=== PATIENT | female | born 1945 | race Caucasian/White ===

== ENCOUNTER 2022-01-21 01:04 | Inpatient (IN) | payer MEDICARE, OTHER, SELFPAY ==
[2022-01-21] VITALS (23 sets, daily range): BP systolic 122–194; BP diastolic 63–99; PULSE 60–103; RESP 12–18; TEMP 36.2–37.3; O2SAT 90–100; BMI 18.3; BMI 16.9
--- NOTE | 2022-01-21 01:06 | XRR_ITS ---
PROCEDURE INFORMATION: Exam: XR Right Hip Exam date and time: 01/21/2022 1:09 AM Age: 76 years old Clinical indication: Injury or trauma; Fall; Blunt trauma (contusions or hematomas); Right; Hip; Additional info: Hip pain TECHNIQUE: Imaging protocol: XR Right hip. Views: 1 view hip with pelvis when performed. COMPARISON: No relevant prior studies available. FINDINGS: Bones/joints: Right subcapital femoral neck fracture. Soft tissues: Unremarkable. XR/XR hip RT 2-3V wo/w pel* [id number] IMPRESSION: Right subcapital femoral neck fracture.
--- NOTE | 2022-01-21 01:08 | XRR_ITS ---
PROCEDURE INFORMATION: Exam: XR Chest Exam date and time: 01/21/2022 1:15 AM Age: 76 years old Clinical indication: Injury or trauma; Fall; Blunt trauma (contusions or hematomas) TECHNIQUE: Imaging protocol: XR of the chest. Views: 1 view. COMPARISON: No relevant prior studies available. FINDINGS: Lungs: Unremarkable. No consolidation. Pleural spaces: Unremarkable. No pleural effusion. No pneumothorax. Heart/Mediastinum: Small hiatal hernia. Bones/joints: Unremarkable. XR/XR chest 1V portable [id number] IMPRESSION: 1. No evidence of acute injury. 2. Small hiatal hernia.
--- NOTE | 2022-01-21 01:09 | W.ED.FALL ---
HPI - Fall General: Chief Complaint: Extremity Injury, Lower Stated Complaint: RIGHT HIP PAIN Time Seen by Provider: 01/21/22 01:05 Source: patient and EMS Mode of arrival: EMS Limitations: no limitations History of Present Illness: 76-year-old female who had gotten up tonight trying to the bathroom and slipped and fell. She fell on her right side and has right hip pain she has shortening or rotation of that right leg. She denies any other injuries she denies hitting her head denies any head or neck pain. Rates her pain a 7 out of 10 currently. She not been able to ambulate since the fall. Associated symptoms-after fall: Denies abdominal pain, chest pain, headache(s) or neck pain Review of Systems Const: Denies: fever(s), chills, body aches or change in appetite Eyes: Denies: blurry vision or eye discomfort ENMT: Denies: throat pain or dental pain Card: Denies: chest pain Resp: Denies: dyspnea GI: Denies: abdominal pain, nausea, vomiting or diarrhea : Denies: dysuria Musc: Reports: extremity pain; Denies: neck pain or back pain Skin/Breast: Denies: rash Neuro: Denies: headache(s) Psych: Denies: depression Lucio/Lymph: Denies: easy bruising All/Imm: Denies: urticaria PFSH ED PFSH: Medical History Dementia Social History Substance/Drug Use: never Physical Exam Const: COMMON NORMALS: patient oriented x3 and healthy appearing GENERAL APPEARANCE: in distress and frail appearing HENMT: COMMON NORMALS: normocephalic and atraumatic HEAD & SCALP: normocephalic and atraumatic Eye: COMMON NORMALS: Equal, round and reactive pupils present and EOMs intact bilaterally PUPIL: Yes Equal, round and reactive pupils present Neck/C-Spine: COMMON NORMALS: full ROM and supple Chest: COMMONS NORMALS: normal inspection of the chest and normal palpation of entire chest wall Resp: COMMON NORMALS: normal respiratory effort, No retractions, No use of accessory muscles and clear to auscultation bilaterally AUSCULTATION: clear to auscultation bilaterally Cardio: COMMON NORMALS: regular rate, regular rhythm and No murmurs present (Cardio) RATE: regular rate RHYTHM: regular rhythm GI: COMMON NORMALS: Normal to inspection, nondistended, normoactive bowel sounds present, Soft to palpation, non-tender and no masses PALPATION: Yes Soft to palpation Extremity: NARRATIVE EXTREMITY EXAM: Shortened rotated right leg tenderness over right hip distal pulses intact. Neuro: COMMON NORMALS: patient oriented x3, moves all extremities and no focal motor deficits Psych: COMMON NORMALS: mental status grossly normal, Normal thought process present and cooperative THOUGHT PROCESS: Normal thought process present Skin: COMMON NORMALS: no rashes or lesions noted and no wounds GENERAL SKIN EXAM: no rashes or lesions noted Course Vital Signs: Vital signs: Vital Signs Temperature 97.9 F 01/21/22 01:07 Pulse Rate 60 01/21/22 02:03 Respiratory Rate 18 01/21/22 02:03 Blood Pressure 178/86 01/21/22 02:03 Pulse Oximetry 100 01/21/22 02:03 MDM - Fall Medical Decision Making Patient presents here with a right hip fracture from a fall. She has no signs of any other injuries no signs of head injury spoke to hospitalist along with orthopedist and will admit. Lab Data : 01/21/22 00:00 01/21/22 00:00 Laboratory Results WBC 7.1 10^3/uL (4.0-10.0) 01/21/22 00:00 RBC 3.92 10^6/uL (4.1-5.3) L 01/21/22 00:00 Hgb 11.6 g/dL (11.5-15.3) 01/21/22 00:00 Hct 35.6 % (37.0-47.0) L 01/21/22 00:00 MCV 90.8 fl (81-99) 01/21/22 00:00 MCH 29.6 pg (28.0-34.0) 01/21/22 00:00 MCHC 32.6 g/dL (30.0-36.0) 01/21/22 00:00 RDW 12.8 % (12.1-15.1) 01/21/22 00:00 Plt Count 306 10^3/cmm (130-400) 01/21/22 00:00 MPV 10.3 fL (7.4-10.4) 01/21/22 00:00 Neut % (Auto) 53.9 % 01/21/22 00:00 Lymph % (Auto) 33.9 % 01/21/22 00:00 [place] % (Auto) 8.9 % 01/21/22 00:00 Eos % (Auto) 2.3 % 01/21/22 00:00 Baso % (Auto) 0.7 % 01/21/22 00:00 Neut # (Auto) 3.83 10^3/uL (1.8-7.7) 01/21/22 00:00 Lymph # (Auto) 2.4 10^3/uL (0.8-4.8) 01/21/22 00:00 [place] # (Auto) 0.6 10^3/uL (0.2-0.9) 01/21/22 00:00 Eos # (Auto) 0.2 10^3/uL (0.0-0.8) 01/21/22 00:00 Baso # (Auto) 0.1 10^3/uL (0.0-0.1) 01/21/22 00:00 Nucleated RBC % (auto) 0 % 01/21/22 00:00 Nucleated RBCs # 0.0 /100WBC 01/21/22 00:00 PT 16.90 SECONDS (12.1-14.9) H 01/21/22 01:10 INR 1.34 (0.8-1.2) H 01/21/22 01:10 Sodium 144 mmol/L (136-145) 01/21/22 00:00 Potassium 3.7 mmol/L (3.5-5.1) 01/21/22 00:00 Chloride 101 mmol/L (98-107) 01/21/22 00:00 Carbon Dioxide 30 mmol/L (22-29) H 01/21/22 00:00 Anion Gap 16.7 (5-19) 01/21/22 00:00 BUN 25 mg/dL (8-23) H 01/21/22 00:00 Creatinine 1.2 mg/dL (0.5-0.9) H 01/21/22 00:00 GFR Calculation Not Reportable 01/21/22 00:00 Glucose 101 mg/dL (65-115) 01/21/22 00:00 Calculated Osmolality 303 mOsm/kg (285-295) H 01/21/22 00:00 Calcium 11.8 mg/dL (8.5-10.5) H 01/21/22 00:00 Total Bilirubin 0.4 mg/dL (0.15-1.2) 01/21/22 00:00 AST 36 U/L (0-32) H 01/21/22 00:00 ALT 14 U/L (0-33) 01/21/22 00:00 Alkaline Phosphatase 93 IU/L (35-105) 01/21/22 00:00 Total Protein 6.9 g/dL (6.6-8.7) 01/21/22 00:00 Albumin 4.1 g/dL (3.5-5.2) 01/21/22 00:00 Globulin 2.8 g/dL (1.3-4.6) 01/21/22 00:00 Discharge Plan Discharge Patient Disposition: Admitted As Inpatient Admit Provider: Tayo Espino Clinical Impression: Fracture of hip, Fall with injury Condition: Stable Coding Level of Care Code ED Painter Plate for [place] Fwd Exam Comprehensive
[2022-01-21] MEDS: ondansetron 2 mg/ML SDV 2 mL 4 MG IVP (01:21)
[2022-01-21] MEDS: morphine 4 mg/mL SDV 1 mL IVP (01:22)
[2022-01-21 01:27] LABS: Basophils # 0.1 10^3/uL (0.0-0.1); Basophils % 0.7 %; Eosinophils # 0.2 10^3/uL (0.0-0.8); Eosinophils % 2.3 %; Hematocrit 35.6 % (37.0-47.0); Hemoglobin 11.6 g/dL (11.5-15.3); Lymphocytes # 2.4 10^3/uL (0.8-4.8); Lymphocytes % 33.9 %; Mean Corpuscular HGB Conc 32.6 g/dL (30.0-36.0); Mean Corpuscular Hemoglobin 29.6 pg (28.0-34.0); Mean Corpuscular Volume 90.8 fl (81-99); Mean Platelet Volume 10.3 fL (7.4-10.4); Monocytes # 0.6 10^3/uL (0.2-0.9); Monocytes % 8.9 %; Neutrophils # 3.83 10^3/uL (1.8-7.7); Neutrophils % 53.9 %; Nucleated Red Blood Cells % 0 %; Platelet Count 306 10^3/cmm (130-400); Red Blood Count 3.92 10^6/uL (4.1-5.3); Red Cell Distribution Width 12.8 % (12.1-15.1); White Blood Count 7.1 10^3/uL (4.0-10.0)
--- NOTE | 2022-01-21 01:38 | PC.NURSE ---
phone call with son pt son, kassidy, called at this time. kassidy updated all information with with registration. kassidy stated he was pt durable power of estate attorney. this nurse told him he needed to bring a copy to the hospital. this nurse also told kassidy visiting hours start at 8 am but he could call for an update at any point and gave him pt room number. kassidy stated they had attempted to put pt on hospice for dementia but pt did not qualify. kassidy states that she has 'lost over 20 pounds recently due to not eating and refuses to have a feeding tube put in.'
[2022-01-21 01:55] LABS: INR 1.34 (0.8-1.2)
[2022-01-21 01:55] LABS: Albumin Level 4.1 g/dL (3.5-5.2); Alkaline Phosphatase 93 IU/L (35-105); Blood Urea Nitrogen 25 mg/dL (8-23); Calcium 11.8 mg/dL (8.5-10.5); Carbon Dioxide 30 mmol/L (22-29); Chloride 101 mmol/L (98-107); Globulin 2.8 g/dL (1.3-4.6); Glucose 101 mg/dL (65-115); Osmolality Calculated 303 mOsm/kg (285-295); Sodium 144 mmol/L (136-145); Total Bilirubin 0.4 mg/dL (0.15-1.2); Total Protein 6.9 g/dL (6.6-8.7)
[2022-01-21 02:03] LABS: Anion Gap 16.7 (5-19); Potassium 3.7 mmol/L (3.5-5.1)
[2022-01-21 02:04] LABS: Alanine Aminotransferase 14 U/L (0-33); Aspartate Amino Transferase 36 U/L (0-32)
--- NOTE | 2022-01-21 02:21 | USCV_ITS ---
Transthoracic Echo Estefany Mendiola Age: 76 Gender: F : 1945 Exam Date: 01/21/2022 02:46 Ordering Phys: Tayo Espino DO Technologist: Jnoy Faria [place] [facility] [place]: Preop BP: 194 / 92 HR: 65 Rhythm: Sinus Technical Quality: Adequate MEASUREMENTS (Male / Female) Normal Values 2D ECHO LV Diastolic Diameter PLAX 3.5 cm 4.2 - 5.9 / 3.9 - 5.3 cm LV Systolic Diameter PLAX 2.1 cm IVS Diastolic Thickness 1.7 cm 0.6 - 1.0 / 0.6 - 0.9 cm IVS Systolic Thickness 2.3 cm LVPW Diastolic Thickness 0.9 cm 0.6 - 1.0 / 0.6 - 0.9 cm LVPW Systolic Thickness 1.1 cm LVOT Diameter 1.9 cm LV Ejection Fraction 2D Teich 77.7 % LV Ejection Fraction MOD 2C 67.8 % LV Ejection Fraction 2C AL 73.5 % LA Diameter 3.4 cm LA Width 3.7 cm LA Height 4.5 cm RA Width 2.1 cm RA Height 4.3 cm Aorta at Sinotubular Diameter 1.5 cm M-MODE Aortic Annulus Diameter 1.9 cm LA Ao Ratio MM 1.9 MV E Point Septal Separation 0.7 cm DOPPLER AV Peak Velocity 92.8 cm/s LVOT Peak Velocity 87.0 cm/s AV Area Cont Eq vti 1.9 cm squared AV Area Cont Eq pk 2.5 cm squared MV Area PHT 2.8 cm squared Mitral E to A Ratio 0.6 MV E' Velocity 41.5 cm/s Mitral E to MV E' Ratio 8.1 Mitral E to LV E' Lateral Ratio 7.0 Mitral E to LV E' Septal Ratio 9.6 TR Peak Velocity 302.8 cm/s TR Peak Gradient 36.7 mmHg TR Mean Velocity 243.4 cm/s TR Mean Gradient 25.4 mmHg TR Velocity Time Integral 106.5 cm Right Atrial Pressure 3.0 mmHg Pulmonary Artery Systolic Pressu 39.7 mmHg PV Peak Velocity 147.0 cm/s FINDINGS Left Ventricle Normal left ventricular size and systolic function, EF 65 %. Grade I/IV diastolic dysfunction (abnormal relaxation filling pattern), normal to mildly elevated filling pressures. Mild left ventricular hypertrophy. Right Ventricle The right ventricle is normal in size and function. Right Atrium The right atrium is normal in size. Left Atrium Mildly increased left atrial size. Mitral Valve Mild to moderate mitral valve regurgitation. Aortic Valve Thickened aortic valve. Tricuspid Valve Trace tricuspid valve regurgitation. Estimated pulmonary artery peak systolic pressure of 40 mm of Hg Pulmonic Valve No gross abnormalities noted Pericardium Normal pericardium without effusion. Aorta Normal ascending aorta dimension. CONCLUSIONS Normal left ventricular size and systolic function, EF 65 %. Grade I/IV diastolic dysfunction (abnormal relaxation filling pattern), normal to mildly elevated filling pressures. Mild left ventricular hypertrophy. Mildly increased left atrial size. Mild to moderate mitral valve regurgitation. Thickened aortic valve. Thickened aortic valve. Trace tricuspid valve regurgitation. Estimated pulmonary artery peak systolic pressure of 40 mm of Hg. There is no pericardial effusion. There are no intracardiac masses. No previous study is available for comparison. Dr Brian Champagne MD FAC (Electronically Signed) Final Date: 21 January 2022 08:53 S
--- NOTE | 2022-01-21 02:21 | ECG_ITS ---
[facility] Test Date: 2022-01-21 Pat Name: Estefany Mendiola Department: Room: 269 Gender: Female Senior Quality Analyst: : 1945 Requested By: Tayo Espino Order Number: [id number] Matt MD: Brian Champagne M.D. Measurements Intervals Wesley Rate: 66 P: 71 NV: 151 QRS: -20 QRSD: 81 T: 37 QT: 368 QTc: 386 Interpretive Statements SINUS RHYTHM No previous ECG available for comparison Electronically Signed On 01-21-2022 22:02:41 CDT by Brian Champagne M.D. [id number]
--- NOTE | 2022-01-21 02:24 | PC.NURSE ---
DR. ALMANZAR AWARE OF BLOOD PRESSURE, STATES PRN HYDRALAZINE ORDER WILL BE ENTERED FOR RN TO GIVE.
--- NOTE | 2022-01-21 02:24 | PM.HP ---
Providers/Chief Complaint Admitting Physician: Tayo Espino DO Primary Care Provider: Marcus Guerrero Chief Complaint: RIGHT HIP PAIN History of Present Illness The patient is a 76-year-old female who was transferred to the emergency department after sustaining a fall at approximately 11:59 PM on January 20, 2022. The patient has known history of dementia and I am uncertain of what her baseline mentation is. She states that she got up and was attempting to go to the bathroom. It appears that she had a mechanical fall. The patient was not a reliable historian presumably due to her dementia however acute encephalopathy cannot be ruled out. Unfortunately because of her mental status, I know I am unable to obtain further history of present illness and most of her past medical history. She presents for further evaluation Review of Systems General: Reports: 10 or more systems reviewed and unremarkable except in HPI and below Medications/Allergies Allergies Allergy/AdvReac Type Severity Reaction Status Date / Time diphenhydramine Allergy ADR-Cramping Verified 01/21/22 01:18 [From Benadryl] of the Muscles gabapentin Allergy ADR-Halluci Verified 01/21/22 01:18 nating omeprazole Allergy ADR-Vomitin Verified 01/21/22 01:18 g Penicillins Allergy ADR-Cramping Verified 01/21/22 01:18 of the Muscles tetanus and diphtheria Allergy ALGY-Hives Verified 01/21/22 01:18 toxoids Tetracyclines Allergy ADR-Cramping Verified 01/21/22 01:18 of the Muscles PFSH Acute PFSH: Medical History Dementia Social History Substance/Drug Use: never Vitals/I&O/Wt Last Vital Signs Temp 97.9 F 01/21/22 01:07 Pulse 60 01/21/22 02:03 Resp 18 01/21/22 02:03 BP 178/86 01/21/22 02:03 Pulse Ox 100 01/21/22 02:03 Weight last 48 hrs Weight 45.359 kg Physical Exam Narrative: General: -Alert -No acute distress -No dyspnea -No tachypnea Head: -Atraumatic -Normocephalic Eyes: -Pupils equally round and reactive to light and accommodation -Extraocular muscles intact Neurological: -Cranial nerves II-XII intact Neck: -No jugular venous distention -No thyromegaly -No cervical lymphadenopathy Heart: -Regular rate -Regular rhythm -No murmurs -No gallops -No rubs Lungs: -No wheeze -No rhonchi -No rales ? Abdomen: -Normal bowel sounds in all four quadrants -No rebound -No guarding -No tenderness Extremities: -2/4 pulse in all four extremities -No clubbing -No cyanosis -No edema -No calf tenderness present bilaterally -Negative Armida?s sign bilaterally Musculoskeletal: -5/5 bilateral upper extremity strength -5/5 bilateral lower extremity strength -Sensorium of bilateral upper extremities are equal and intact -Sensorium of bilateral lower extremities are equal and intact ? Additional Details / Additional Findings / Exceptions / Miscellaneous: Urinary Catheter Management: Payne: Cath Placed During This Visit: yes Urinary Catheter Date of Insertion: 01/21/22 Urinary Catheter Time of Insertion: 01:29 Data : 01/21/22 00:00 01/21/22 00:00 A&P Assessment and plan (1) Fracture of hip: Status: Acute Qualifiers: Encounter type: initial encounter Fracture type: closed Laterality: right Qualified Code(s): S72.001A - Fracture of unspecified part of neck of right femur, initial encounter for closed fracture Plan Fall with subsequent right hip fracture. It is difficult to stratify this patient from a risk standpoint for surgical intervention given her history of dementia and the fact that we have no previous medical records for this patient. From what I am able to ascertain, at least from a pulmonary standpoint she is a former smoker and she denies use of oxygen at home. In terms of bleeding diathesis, the patient has an elevated INR of 1.34 however I do not have access to her home medication list so it is uncertain as to whether she is on anticoagulants at home, and if so, for what medical reason. PTT pending. From a cardiovascular standpoint, he EKG and echocardiogram are pending. Will monitor the patient on telemetry. Radiology report for chest x-ray?portable pending. Given the nature of the patient's fracture and from what I am able to ascertain between the patient's age, laboratory abnormalities, and medical core morbidities, I would stratify her as at least a moderate risk and at this time, assuming the pending tests are unremarkable, there to be no contraindications to proceeding with surgical intervention if the orthopedic surgeons choose to do so. Nothing by mouth. IV normal saline at 75 ML's per hour. When necessary analgesia Acute renal insufficiency. Will monitor creatinine intermittently. IV normal saline 75 ML's per hour Coagulopathy. I am uncertain as to whether the patient patient takes anticoagulants at home. Will monitor PT/INR periodically Dementia. Outpatient follow up with urology upon discharge Query encephalopathy superimposed on dementia. Urinalysis pending. Ammonia level pending. Neurological checks every 4 hours Hypercalcemia. This may be sequelae of dehydration. Will monitor calcium level intermittently. IV normal normal saline 75 ML's per hour. If the patient remains hypercalcemic despite IV hydration, will need to check ionized calcium, PTH, PTH related peptide, angiotensin-converting enzyme level, Bence-Marks protein, 25 hydroxy vitamin D level, 1, 25 hydroxy vitamin D level Elevated blood pressure. This may be a sequelae of pain from right hip fracture. DVT Proflex is. Bilateral SCD Attestations Medical Necessity Statement*: The patient's anticipated length of stay is greater than 2 midnights given her right hip fracture with likely surgical intervention which is anticipated Coding Level of Care Code Acute Charging Car Operator for Andrew Arevalo Diagnoses Fracture of hip S72.001A Encounter type: initial encounter Fracture type: closed Laterality: right
[2022-01-21] MEDS: sodium chloride 0.9% 1,000 ML 75 ML IV ×2 (02:49→16:11)
[2022-01-21] MEDS: hyDRALAzine 20 mg/mL INJ 1 mL 10 MG IVP (02:49)
[2022-01-21] MEDS: HYDROcodone-acetaminophen 5-325 mg Tablet 1 TAB PO ×2 (03:55→14:19)
[2022-01-21] MEDS: morphine 4 mg/mL SDV 1 mL 1 MG IVP ×2 (05:42→16:10)
[2022-01-21 06:28] LABS: INR 1.27 (0.8-1.2)
[2022-01-21 06:29] LABS: Troponin T (5th) Once 22 ng/L (0-10)
[2022-01-21 06:30] LABS: Ammonia 18 umol/L (11-51)
[2022-01-21 06:31] LABS: Alanine Aminotransferase 13 U/L (0-33); Albumin Level 3.8 g/dL (3.5-5.2); Alkaline Phosphatase 84 IU/L (35-105); Aspartate Amino Transferase 26 U/L (0-32); Blood Urea Nitrogen 23 mg/dL (8-23); Calcium 11.3 mg/dL (8.5-10.5); Carbon Dioxide 29 mmol/L (22-29); Chloride 104 mmol/L (98-107); Glucose 106 mg/dL (65-115); Osmolality Calculated 306 mOsm/kg (285-295); Sodium 146 mmol/L (136-145); Total Bilirubin 0.3 mg/dL (0.15-1.2); Total Protein 5.8 g/dL (6.6-8.7)
--- NOTE | 2022-01-21 09:08 | PM.CONSULT ---
Providers/Reason For Consult Consulting Physician/Specialty*: Orthopedics Reason for Consult*: Right hip pain Attending Physician: Buck Cheney DO Primary Care Provider: Marcus Guerrero History of Present Illness History of Present Illness Estefany Mendiola is a 76 year old female transferred to the emergency department after sustaining a fall will try to get to the restroom. She was evaluated in the holding unit in the operating room. No family was present. Son was contacted by anesthesia and provided hypertensive history and blood thinner history. Patient is confused. The patient has known history of dementia? The patient was not a reliable historian unable to obtain further Medical history. Patient appears comfortable. Obvious external rotation of the right lower extremity. An extensive review of the patient's past medical history, surgical history, allergies, medications, family history, social history, and review of systems was completed Review of Systems General: Reports: 10 or more systems reviewed and unremarkable except in HPI and below Medications/Allergies Allergies Allergy/AdvReac Type Severity Reaction Status Date / Time diphenhydramine Allergy ADR-Cramping Verified 01/21/22 01:18 [From Benadryl] of the Muscles gabapentin Allergy ADR-Halluci Verified 01/21/22 01:18 nating omeprazole Allergy ADR-Vomitin Verified 01/21/22 01:18 g Penicillins Allergy ADR-Cramping Verified 01/21/22 01:18 of the Muscles tetanus and diphtheria Allergy ALGY-Hives Verified 01/21/22 01:18 toxoids Tetracyclines Allergy ADR-Cramping Verified 01/21/22 01:18 of the Muscles Current Medications Generic Name Dose Route Start Last Admin Trade Name Freq PRN Reason Stop Dose Admin Hydrocodone Bitart/Acetaminophen 1 tab 01/21/22 02:19 01/21/22 03:55 Hydrocodone-Acetaminophen 5-325 Mg Tablet PO 1 tab Q4H PRN Administration MODERATE TO SEVERE PAIN Hydralazine HCl 10 mg 01/21/22 02:22 01/21/22 02:49 Hydralazine 20 Mg/Ml Inj 1 Ml IVP 10 mg Q4H PRN Administration sbp>150 Sodium Chloride 1,000 mls @ 75 mls/hr 01/21/22 02:30 01/21/22 02:49 Sodium Chloride 0.9% IV 75 mls/hr .[id number] [id number] Administration Morphine Sulfate 1 mg 01/21/22 02:19 01/21/22 05:42 Morphine 4 Mg/Ml Sdv 1 Ml IVP 1 mg Q4H PRN Administration SEVERE PAIN PFSH Acute PFSH: Medical History Dementia Social History Substance/Drug Use: never Vitals/I&O/Wt Last Vital Signs Temp 98.0 F 01/21/22 08:00 Pulse 90 01/21/22 08:00 Resp 14 01/21/22 08:00 BP 127/67 01/21/22 08:00 Pulse Ox 90 01/21/22 08:00 01/20/22 01/21/22 01/21/22 22:59 06:59 14:59 Intake Total 0 / 0 0 / 0 Output Total 0 / 0 Balance 0 / 0 0 / 0 Weight last 48 hrs Weight 92 lb 6.4 oz Weight 100 lb Physical Exam Narrative: Patient is confused due to dementia, no apparent distress. Obvious external rotation of the right lower extremity. Illicits facial pain response with logroll of the right hip negative on the left. Skin is warm to the touch she is able to wiggle her toes. Dorsalis pedis and posterior tibial pulses are palpable. Dorsalis pedis and posterior tibial pulses are weak but palpable. Appears to have normal sensation to light touch in all digits. No evidence of palpable pain in the low back thoracic or cervical region. No palpable pain over the shoulders elbows or wrists. Hands are warm good cap refill radial pulses are palpable. HENMT: COMMON NORMALS: normocephalic and atraumatic HEAD & SCALP: normocephalic and atraumatic Resp: COMMON NORMALS: normal respiratory effort Cardio: COMMON NORMALS: regular rate and regular rhythm RATE: regular rate RHYTHM: regular rhythm GI: COMMON NORMALS: Soft to palpation PALPATION: Yes Soft to palpation : COMMON NORMALS: Yes no CVA tenderness BLADDER/KIDNEY EXAM: Yes no CVA tenderness Back/Pelvis: COMMON NORMALS: no CVA tenderness Psych: OTHER: Confused due to dementia Urinary Catheter Management: Payne: Cath Placed During This Visit: yes Reason for Continuing Indwelling Catheter: Required Immobilization for Trauma or Surgery or Anesthesia Urinary Catheter Date of Insertion: 01/21/22 Urinary Catheter Time of Insertion: 01:29 Data : 01/21/22 00:00 01/21/22 05:45 A&P Assessment and plan (1) Displaced fracture of right femoral neck: Order clindamycin 900 mg for surgical prophylaxis IV. We will proceed with a right hip hemiarthroplasty. Status: Acute (2) Dementia: Status: Acute Coding Level of Care Code Acute Switchboard And Control Room Operator for [facility] Irina Diagnoses Displaced fracture of right femoral neck S72.001A Dementia F03.90
--- NOTE | 2022-01-21 09:13 | ANES.PREANE2 ---
Pre-Anesthetic Assessment Height/Weight: Height 1.57 m Weight 41.912 kg Temp Pulse Resp BP Pulse Ox 97.8 F 88 18 128/63 92 01/21/22 09:05 01/21/22 09:05 01/21/22 09:05 01/21/22 09:05 01/21/22 09:05 Operation Date: 01/21/22 10:40 Proposed Procedures p Open Reduction Hip Fracture(Right) - Edu Rivas Caron, DO Familial anesthetic complications: None Was Beta Alex taken within 24 hours: N/A Was Clonidine taken within 24 hours: N/A Last intake: > 8 hrs Social No alcohol and No tobacco Exam alert, clear to auscultation bilaterally and regular rate & rhythm Airway Mallampati: Class II Dentition: full History/ROS Other (History obtained from Son over phone) CV/HEM Hypertension Neuropsych Dementia Anesthetic Plan ASA status: 3 Risk of > 500 ml blood loss (7ml/kg in children): No Other Pertinent Information Patient's son poor historian and patient with dementia Medications/Allergies Allergies Allergy/AdvReac Type Severity Reaction Status Date / Time diphenhydramine Allergy ADR-Cramping Verified 01/21/22 01:18 [From Benadryl] of the Muscles gabapentin Allergy ADR-Halluci Verified 01/21/22 01:18 nating omeprazole Allergy ADR-Vomitin Verified 01/21/22 01:18 g Penicillins Allergy ADR-Cramping Verified 01/21/22 01:18 of the Muscles tetanus and diphtheria Allergy ALGY-Hives Verified 01/21/22 01:18 toxoids Tetracyclines Allergy ADR-Cramping Verified 01/21/22 01:18 of the Muscles Current Medications Generic Name Dose Route Start Last Admin Trade Name Freq PRN Reason Stop Dose Admin Hydrocodone Bitart/Acetaminophen 1 tab 01/21/22 02:19 01/21/22 03:55 Hydrocodone-Acetaminophen 5-325 Mg Tablet PO 1 tab Q4H PRN Administration MODERATE TO SEVERE PAIN Hydralazine HCl 10 mg 01/21/22 02:22 01/21/22 02:49 Hydralazine 20 Mg/Ml Inj 1 Ml IVP 10 mg Q4H PRN Administration sbp>150 Sodium Chloride 1,000 mls @ 75 mls/hr 01/21/22 02:30 01/21/22 02:49 Sodium Chloride 0.9% IV 75 mls/hr .[id number] BOYD Administration Morphine Sulfate 1 mg 01/21/22 02:19 01/21/22 05:42 Morphine 4 Mg/Ml Sdv 1 Ml IVP 1 mg Q4H PRN Administration SEVERE PAIN PFSH Anesthesia Medical History Dementia Social History Substance/Drug Use: never Data Anesthesia : 01/21/22 00:00 01/21/22 05:45 Short CBC 01/21/22 Range/Units 00:00 WBC 7.1 (4.0-10.0) 10^3/uL Hgb 11.6 (11.5-15.3) g/dL Hct 35.6 L (37.0-47.0) % MCV 90.8 (81-99) fl Plt Count 306 (130-400) 10^3/cmm Neut % (Auto) 53.9 % Neut # (Auto) 3.83 (1.8-7.7) 10^3/uL BMP 01/21/22 01/21/22 00:00 05:45 Sodium 144 146 H Potassium 3.7 3.0 L Chloride 101 104 Carbon Dioxide 30 H 29 BUN 25 H 23 Creatinine 1.2 H 1.1 H Glucose 101 106 Calcium 11.8 H 11.3 H Cardiac Enzymes 01/21/22 Range/Units 05:45 Troponin T Gen 5 ng/L 22 H (0-10) ng/L Liver Function 01/21/22 01/21/22 Range/Units 00:00 05:45 Total Bilirubin 0.4 0.3 (0.15-1.2) mg/dL AST 36 H 26 (0-32) U/L ALT 14 13 (0-33) U/L Alkaline Phosphatase 93 84 (35-105) IU/L Albumin 4.1 3.8 (3.5-5.2) g/dL Coags 01/21/22 01/21/22 01:10 05:45 PT 16.90 H 16.30 H INR 1.34 H 1.27 H Cardiac Studies: No Data to Display
[2022-01-21] MEDS: sodium chloride 0.9% 1,000 ML 30 ML IV (09:14)
[2022-01-21] MEDS: clindamycin 900 MG/50 ML PREMIX 100 MG IV (10:14)
--- NOTE | 2022-01-21 11:03 | PM.OP ---
Operative Report Date of procedure: January 21, 2022 Pre-op diagnosis: Preop Diagnosis Displaced right femoral neck fracture Post-op diagnosis: same Procedure done: 1. Right hip hemiarthroplasty Surgeon: Edu Kunz Sterile Processing Technologist: Conner Song Sterile Processing Technologist: The surgical supplies sterilizer, Conner Song, PAC was needed for his expertise with hip fractures. No staff was available but he was to reduce the hip fractures. He was important and necessary throughout the procedure to complete in a safe and timely manner. He assisted with patient positioning prepping and draping tissue retraction suctioning of the operative field protection of the critical structures and tissue closure Estimated blood loss (mL): 10 Procedure: 1. Right hip hemiarthroplasty Patient was brought to the operative suite after undergoing anesthesia patient was positioned in the right decubitus lateral position. Right side up. All areas impingement well-padded. Patient was prepped and draped normal sterile fashion. Skin was made on the lateral aspect of the hip. IT band was split. Retractors were placed modified Rosenthal approach was used the abductors and capsule taken anteriorly. The femoral neck cut was made approximately 1 fingerbreadth above the lesser trochanter. The femoral head was taken out. The femoral head was measured to the appropriate size. This was a 43. Next attention was brought to the femur. The box car washer was used to get the lateral edge of the tibia greater trochanter. The lateralizer and canal finder were then used. And then broaches. The canal was broached up to a 3. A size 3 stem was inserted with a 43 head and a -3 neck length. This was a Kimberly prosthesis. Hip was reduced and trialed in all positions. [place] to be stable adequate leg lengths were equal. And then the abductors and capsule were repaired with FiberWire. IT band was closed with 0 Vicryl skin was closed with 2-0 Vicryl and selena. Sterile dressings were applied and patient was transferred to the PACU in stable condition.
--- NOTE | 2022-01-21 11:57 | ANE.PACU2 ---
Inpatient post-anesthesia follow up: Airway intact: Yes Vital signs: Temperature 97.2 F Pulse Rate [Right Dorsalis 72 Pedis] Pulse Rate 99 Respiratory Rate 16 Blood Pressure 175/76 Pulse Oximetry 97 Oxygen Delivery Me thod Room Air Oxygen Flow Rate 3 Fraction of Inspir ed Oxygen Hydration adequate: Yes Nausea and vomiting: No Pain level: 2 Mental status: Baseline
--- NOTE | 2022-01-21 14:54 | PM.PN ---
Subjective Subjective: 76 y/o F with advanced dementia admitted for R hip fracture. Patient very confused this morning. Unable to answer questions regarding her whereabouts or how she fell. Did speak to son this morning who verifies severe dementia. Ortho has planned for surgery today. Patient does report some pain in the R hip. No other complaints or concerns. Medications: Reviewed: Yes Vitals/I&O/Wt Last Vital Signs Temp 97.4 F L 01/21/22 12:02 Pulse 95 01/21/22 12:02 Resp 18 01/21/22 12:02 BP 162/95 01/21/22 12:02 Pulse Ox 97 01/21/22 13:52 01/20/22 01/21/22 01/21/22 22:59 06:59 14:59 Intake Total 0 / 0 352 / 352 Output Total 0 / 0 50 / 50 Balance 0 / 0 302 / 302 Weight last 48 hrs Weight 92 lb 6.4 oz Weight 100 lb Physical Exam Narrative: General: Confused elderly woman, comfortable appearing during exam. HEENT: Normocephalic, Atraumatic. External ears normal. Nasal passages patent without drainage. MMM. Heart: Regulary rate and rhythm. No rubs, gallops or murmurs. Resp: Clear to auscultation. no rales, rhonchi or wheezes. No respiratory distress, no use of accessory muscles. Abd: Soft, non tender, Non-distended. normal polina sounds present. MSK: LE's without edema. R hip is bruised, and TTP. Skin: No rash or lesions on exposed areas. Urinary Catheter Management: Payne: Cath Placed During This Visit: yes Reason for Continuing Indwelling Catheter: Required Immobilization for Trauma or Surgery or Anesthesia Urinary Catheter Date of Insertion: 01/21/22 Urinary Catheter Time of Insertion: 01:29 Data : 01/21/22 00:00 01/21/22 05:45 A&P Assessment and plan (1) Displaced fracture of right femoral neck: Status: Acute (2) Fracture of hip: Status: Acute Qualifiers: Encounter type: initial encounter Fracture type: closed Laterality: right Qualified Code(s): S72.001A - Fracture of unspecified part of neck of right femur, initial encounter for closed fracture (3) Fall with injury: Status: Acute Qualifiers: Encounter type: initial encounter Qualified Code(s): W19.XXXA - Unspecified fall, initial encounter (4) Dementia: Status: Acute Plan 76 y/o F with advanced dementia admitted for R hip fracture. - Continue close inpatient monitoring. - Ortho plans for R hip surgery today. - Continue NPO. Pre-op Abx ordered. - Continue IVF's at this time. - Vitals stable. - PT/OT to eval and treat after surgery. - Will need discharge planning for SNF. - Home meds discussed with son and will order as indicated. IVF: NS @ 75ml/hr. GI PPx: protonix DVT PPx: Lovenox O2: no PCP: Kanchan Casas [place] Medical Necessity Statement*: The patient's anticipated length of stay is greater than 2 midnights given her right hip fracture with surgical intervention which is anticipated Coding Level of Care Code Acute Vice President Of Nursing for Andrew Arevalo Diagnoses Displaced fracture of right femoral neck S72.001A Fracture of hip S72.001A Encounter type: initial encounter Fracture type: closed Laterality: right Fall with injury W19.XXXA Encounter type: initial encounter Dementia F03.90
[2022-01-21] MEDS: clindamycin 600 MG/50 ML PREMIX 100 MG IV (19:46)
--- NOTE | 2022-01-21 19:54 | PC.NURSE ---
PATIENT HAD REMOVED OLD RIGHT AC IV, CATHETER TIP INTACT. NEW 22 G IV IN RIGHT AC INITIATED. NS AT 75ML/HR RESUMED.
[2022-01-21] MEDS: enoxaparin 30 mg/0.3 mL Syringe SUBCUT (22:57)
[2022-01-22] VITALS (9 sets, daily range): BP systolic 105–174; BP diastolic 62–89; PULSE 0–113; RESP 16–18; TEMP 36.3–37.1; O2SAT 90–95
[2022-01-22] MEDS: ketorolac 30 mg/mL INJ 15 MG IVP (00:04)
[2022-01-22] MEDS: clindamycin 600 MG/50 ML PREMIX 100 MG IV ×2 (01:33→10:21)
[2022-01-22 02:04] LABS: Bilirubin Urine Neg (Negative); Blood Urine 3+ (Negative); Glucose Urine UA Norm (Normal); Ketones Urine Negative (Negative); Leukocyte Esterase Urine 2+ (Negative); Nitrate Urine Positive (Negative); Protein Urine 2+ (Negative); Specific Gravity, Urine 1.015 (1.005-1.030); Urine Appearance SL Hazy (CLEAR); Urine Color Yellow (Yellow); Urobilinogen Urine Norm (Negative); pH Urine 6 (5-7)
[2022-01-22 02:07] LABS: Add Urine Culture? No; Bacteria Urine 4+ /hpf; RBC Urine TOO NUMEROUS TO CNT /hpf (0-2); Squamous Epithelial Cell Urine 40-55 /hpf (0-5); WBC Urine TOO NUMEROUS TO CNT /hpf (0-5)
[2022-01-22] MEDS: sodium chloride 0.9% 1,000 ML 75 ML IV (05:28)
[2022-01-22 06:43] LABS: Basophils % 0.3 %; Eosinophils % 0.1 %; Hematocrit 30.7 % (37.0-47.0); Hemoglobin 9.8 g/dL (11.5-15.3); Lymphocytes # 0.9 10^3/uL (0.8-4.8); Lymphocytes % 7.6 %; Mean Corpuscular HGB Conc 31.9 g/dL (30.0-36.0); Mean Corpuscular Hemoglobin 29.1 pg (28.0-34.0); Mean Corpuscular Volume 91.1 fl (81-99); Monocytes # 1.1 10^3/uL (0.2-0.9); Monocytes % 8.7 %; Neutrophils # 10.23 10^3/uL (1.8-7.7); Neutrophils % 82.9 %; Nucleated Red Blood Cells % 0 %; Platelet Count 241 10^3/cmm (130-400); Red Blood Count 3.37 10^6/uL (4.1-5.3); White Blood Count 12.4 10^3/uL (4.0-10.0)
[2022-01-22 06:48] LABS: Alanine Aminotransferase 12 U/L (0-33); Albumin Level 3.3 g/dL (3.5-5.2); Alkaline Phosphatase 73 IU/L (35-105); Anion Gap 14.1 (5-19); Aspartate Amino Transferase 31 U/L (0-32); Blood Urea Nitrogen 28 mg/dL (8-23); Calcium 10.5 mg/dL (8.5-10.5); Carbon Dioxide 28 mmol/L (22-29); Chloride 104 mmol/L (98-107); Globulin 2.3 g/dL (1.3-4.6); Glucose 118 mg/dL (65-115); Osmolality Calculated 303 mOsm/kg (285-295); Potassium 3.1 mmol/L (3.5-5.1); Sodium 143 mmol/L (136-145); Total Bilirubin 0.4 mg/dL (0.15-1.2); Total Protein 5.6 g/dL (6.6-8.7)
--- NOTE | 2022-01-22 08:48 | PM.PN ---
Subjective Subjective: Estefany is able to carry on a conversation but she is quite confused. I suspect this is her baseline as outlined in her progress notes, information from son. She cannot tell me her prior occupation. She denies any pain. She does have me just the light as it seems to bright for her. She denies any shortness of breath. Medications: Reviewed: Yes Vitals/I&O/Wt Last Vital Signs Temp 98.0 F 01/22/22 07:41 Pulse 68 01/22/22 07:41 Resp 17 01/22/22 07:41 BP 132/70 01/22/22 07:41 Pulse Ox 91 01/22/22 07:41 01/21/22 01/22/22 01/22/22 22:59 06:59 14:59 Intake Total 1473.5 / 1825.5 1046.25 / 2871.75 Output Total 50 / 100 Balance 1473.5 / 1775.5 996.25 / 2771.75 Weight last 48 hrs Weight 41.912 kg Weight 45.359 kg Physical Exam Narrative: General exam is no distress Neck is supple Cardiovascular regular rate and rhythm without murmur Lungs clear Abdomen is soft, positive bowel sounds Extremities no cyanosis clubbing or edema. Dressing right hip clean and dry. Skin no rash Neuro no focal deficits, patient confused Urinary Catheter Management: Payne: Cath Placed During This Visit: yes, but has since been removed by the nurse Reason for Continuing Indwelling Catheter: Not indwelling catheter Urinary Catheter Date of Insertion: 01/21/22 Urinary Catheter Time of Insertion: 01:29 Date Urinary Catheter Removed: 01/22/22 Data : 01/22/22 05:48 01/22/22 05:48 A&P Assessment and plan (1) Fracture of hip: Postoperative day #1 status post repair Continue therapy Reduce fluids Status: Acute Qualifiers: Encounter type: initial encounter Fracture type: closed Laterality: right Qualified Code(s): S72.001A - Fracture of unspecified part of neck of right femur, initial encounter for closed fracture (2) Fall with injury: See above. Suspected mechanical fall. Status: Acute Qualifiers: Encounter type: initial encounter Qualified Code(s): W19.XXXA - Unspecified fall, initial encounter (3) Dementia: Underlying diagnosis of dementia. We do not have any old records. Check TSH and B12 on blood in lab. Status: Acute (4) UTI (urinary tract infection): Acute postoperative blood loss anemia. Hemoglobin 9.8 today. Recheck tomorrow. No need for transfusion. Appears to have UTI based on urinalysis. Start Rocephin 1 g IV every 24 hours Urine culture Status: Acute Plan Hypokalemia. Supplement, recheck tomorrow History of hypertension. Continue home medications DVT prophylaxis Lovenox Attestations Medical Necessity Statement*: Needs continued hospitalization for therapy following hip surgery pending placement. Coding Level of Care Code Acute Visual Lead for [facility] Irina Diagnoses Fracture of hip S72.001A Encounter type: initial encounter Fracture type: closed Laterality: right Fall with injury W19.XXXA Encounter type: initial encounter Dementia F03.90 UTI (urinary tract infection) N39.0
[2022-01-22] MEDS: HYDROcodone-acetaminophen 5-325 mg Tablet 1 TAB PO ×4 (08:56→23:15)
[2022-01-22] MEDS: lisinopril 20 mg Tablet PO (08:58)
[2022-01-22] MEDS: atenolol 50 mg Tablet PO (08:58)
[2022-01-22] MEDS: donepezil 5 MG Tablet 10 MG PO (08:58)
[2022-01-22] MEDS: trazodone 50 mg Tablet PO (08:58)
[2022-01-22] MEDS: cefTRIAXone 1,000 MG in sodium chloride 0.9% (plus) 50 ML 100 MG IV (09:17)
[2022-01-22] MEDS: potassium chloride ER 20 mEq Tablet 40 MEQ PO (09:17)
--- NOTE | 2022-01-22 09:36 | PM.PN ---
Subjective Subjective: POD 1 Patient confused this morning no family present. In no apparent distress. Vitals/I&O/Wt Last Vital Signs Temp 98.0 F 01/22/22 07:41 Pulse 68 01/22/22 07:41 Resp 17 01/22/22 07:41 BP 132/70 01/22/22 07:41 Pulse Ox 91 01/22/22 07:41 01/21/22 01/22/22 01/22/22 22:59 06:59 14:59 Intake Total 1473.5 / 1825.5 1046.25 / 2871.75 340 / 340 Output Total 50 / 100 Balance 1473.5 / 1775.5 996.25 / 2771.75 340 / 340 Weight last 48 hrs Weight 92 lb 6.4 oz Weight 100 lb Physical Exam Narrative: Patient is no apparent distress confused due to dementia. Hip incision is clean and dry. There is no signs of erythema or drainage no signs of infection. Good motor strength throughout both lower extremities. Fires in all motor groups. Skin is clear warm, feet are warm with good cap refill in all digits. Normal sensation to light touch. Calves are supple, no medial thigh tenderness, negative Homans' sign. No palpable edema peripherally. Urinary Catheter Management: Payne: Cath Placed During This Visit: yes, but has since been removed by the nurse Reason for Continuing Indwelling Catheter: Not indwelling catheter Urinary Catheter Date of Insertion: 01/21/22 Urinary Catheter Time of Insertion: 01:29 Date Urinary Catheter Removed: 01/22/22 Data : 01/22/22 05:48 01/22/22 05:48 A&P Assessment and plan (1) Displaced fracture of right femoral neck: technical services coordinator consult for placement. Physical therapy to evaluate. Incentive spirometry for pulmonary toilet. Status: Acute Attestations Medical Necessity Statement*: defer to medical team Coding Level of Care Code Acute Fundraising Consultant for [facility] Fwd Diagnoses Displaced fracture of right femoral neck S72.001A
[2022-01-22 09:44] LABS: Thyroid Stimulating Hormone 0.49 uIU/mL (0.27-4.20); Vitamin B12 582 pg/mL (232-1245)
--- NOTE | 2022-01-22 10:42 | PC.CHAP ---
Pastoral Care Encounter/Spiritual Assessment Type of Contact [] Declined pre press manager visit [] Patient/Family/Request visit [] Outpatient visit [] Follow-up visit [] Physician referral [] Code/Alert [x] Routine visit [] Staff referral [] Actively dying [] Patient sleeping [] Family support [] [] Out of room [] Palliative care [] [] Receiving care in room [] Pre-surgical visit [] Trauma [] Long length of stay [] ICU visit [] Other: Relational/Emotional Strength [] Patient feels connected with others/family/visitors/staff [] Distress [] Loneliness/isolation [] Abandonment Spirituality of Patient [x] Person of Angie [] Attends Spiritism of their Angie [x] Believes in Prayer [] Reads Bible or Jain materials [] There are Spiritual issues to be addressed Conveyor Installer Interventions [x] Prayer [x] Active listening [x] Non-anxious presence [] Spiritual/emotional support [] Crisis/trauma care [] Spiritual counseling [] Bereavement support [] Provided bereavement packet [] Provided Bible/devotional materials [] Provided toy/stuffed animal, coloring book to patient or family member [] Provided Communion [] Anointing/Platina [] Salvation [x] Completed spiritual assessment [] Other: Impact on Illness or Injury [] Angry [] Fearful [] Anxious [] Often cries [] Exhaustion [] Unable to work [] Unable to attend christian [] Unable to walk/stand [] Unable to read [] Unable to drive [] Unable to eat/drink [] Unable to sleep [] Unable to be with family [] Patient intubated [] Other: Summary Time spent with patient 10 min
--- NOTE | 2022-01-22 10:45 | PC.NURSE ---
Spoke with Estefany Velazquez's son. Updated Marcus on her condition and mental state this morning. Asked permission to give Case Management his number and he approved that. Gave Gayel with Case Management Marcus's phone number to discuss placement options.
[2022-01-22] MEDS: potassium chloride oral liq 20 mEq/15 mL UDC 40 MEQ PO (12:08)
--- NOTE | 2022-01-22 15:26 | PC.OT ---
OT EVALUATION ATTEMPTED. PATIENT IS SLEEPING SOUNDLY AND DOES NOT AWAKEN TO HER NAME SAID LOUDLY X2. WILL ATTEMPT AGAIN TOMORROW.
--- NOTE | 2022-01-22 22:33 | PC.NURSE ---
Pt politely refuses to wear telemetry.
[2022-01-22] MEDS: enoxaparin 30 mg/0.3 mL Syringe SUBCUT (23:15)
[2022-01-23] VITALS (9 sets, daily range): BP systolic 115–181; BP diastolic 57–77; PULSE 58–72; RESP 16–19; TEMP 36.4–37.5; O2SAT 90–95
[2022-01-23] MEDS: sodium chloride 0.9% 1,000 ML 50 ML IV (01:21)
[2022-01-23 03:30] LABS: Basophils % 0.2 %; Eosinophils # 0.1 10^3/uL (0.0-0.8); Eosinophils % 0.7 %; Hematocrit 24.9 % (37.0-47.0); Hemoglobin 8.1 g/dL (11.5-15.3); Lymphocytes % 8.7 %; Mean Corpuscular HGB Conc 32.5 g/dL (30.0-36.0); Mean Corpuscular Hemoglobin 30.1 pg (28.0-34.0); Mean Corpuscular Volume 92.6 fl (81-99); Mean Platelet Volume 10.5 fL (7.4-10.4); Monocytes % 8.7 %; Neutrophils # 9.33 10^3/uL (1.8-7.7); Nucleated Red Blood Cells % 0 %; Platelet Count 201 10^3/cmm (130-400); Red Blood Count 2.69 10^6/uL (4.1-5.3); Red Cell Distribution Width 13.1 % (12.1-15.1); White Blood Count 11.5 10^3/uL (4.0-10.0)
[2022-01-23 04:03] LABS: Anion Gap 12.2 (5-19); Blood Urea Nitrogen 40 mg/dL (8-23); Calcium 10.8 mg/dL (8.5-10.5); Carbon Dioxide 25 mmol/L (22-29); Chloride 112 mmol/L (98-107); Glucose 102 mg/dL (65-115); Osmolality Calculated 310 mOsm/kg (285-295); Potassium 4.2 mmol/L (3.5-5.1); Sodium 145 mmol/L (136-145)
--- NOTE | 2022-01-23 05:14 | PC.NURSE ---
Pt alert to self and knows that she is in the hospital. She refuses to take a drink. She insists that she is not in pain, and does not want a pill.
--- NOTE | 2022-01-23 07:35 | P.PN_ITS ---
Subjective Subjective: Estefany is about the same as yesterday. She denies any pain. I reoriented her to why she is in the hospital. She can carry on a conversation, but substitutes many words, and is obviously confused. She denies any chest discomfort, or shortness of breath. Medications: Reviewed: Yes Vitals/I&O/Wt Last Vital Signs Temp 98.2 F 01/23/22 07:19 Pulse 63 01/23/22 07:19 Resp 18 01/23/22 07:19 BP 167/75 01/23/22 07:19 Pulse Ox 92 01/23/22 07:19 01/22/22 01/23/22 01/23/22 22:59 06:59 14:59 Intake Total 240 / 720 740 / 1460 Balance 240 / 620 740 / 1360 Physical Exam Narrative: General exam is no distress Neck is supple Cardiovascular regular rate and rhythm without murmur Lungs clear Abdomen is soft, positive bowel sounds Extremities no cyanosis clubbing or edema. Dressing right hip clean and dry. I do not see any significant hematoma. Skin no rash Neuro no focal deficits, patient confused Urinary Catheter Management: Payne: Cath Placed During This Visit: yes, but has since been removed by the nurse Reason for Continuing Indwelling Catheter: Not indwelling catheter Urinary Catheter Date of Insertion: 01/21/22 Urinary Catheter Time of Insertion: 01:29 Date Urinary Catheter Removed: 01/22/22 Data : 01/23/22 02:15 01/23/22 02:15 A&P Assessment and plan (1) Fracture of hip: Postoperative day #2 status post repair Continue therapy Continue fluids. I suspect her intake orally will be poor here at the hospital. Status: Acute Qualifiers: Encounter type: initial encounter Fracture type: closed Laterality: right Qualified Code(s): S72.001A - Fracture of unspecified part of neck of right femur, initial encounter for closed fracture (2) Fall with injury: See above. Suspected mechanical fall. Status: Acute Qualifiers: Encounter type: initial encounter Qualified Code(s): W19.XXXA - Unspecified fall, initial encounter (3) Dementia: Underlying diagnosis of dementia. We do not have any old records. TSH and B12 are normal Status: Acute (4) UTI (urinary tract infection): Appears to have UTI based on urinalysis. Continue Rocephin 1 g IV every 24 hours Await urine culture Status: Acute Plan Acute postoperative blood loss anemia. Hemoglobin decreased further, but no need for transfusion. Patient does not seem to be symptomatic. Hypokalemia. Resolved Hypercalcemia. This normalized somewhat with hydration. We will go ahead and check parathyroid hormone as it may not be completely explained by dehydration. At her current levels this is unlikely to be affecting the quality of her life, considering her severe underlying dementia. Continue IV fluids currently. History of hypertension. Continue home medications DVT prophylaxis Lovenox Attestations Medical Necessity Statement*: Needs continued hospitalization for close monitoring following hip fracture with ongoing therapy, close follow-up of hyperkalemia, close follow-up of postoperative anemia Coding Level of Care Code Acute Doughnut Machine Operator for Andrew Arevalo Diagnoses Fracture of hip S72.001A Encounter type: initial encounter Fracture type: closed Laterality: right Fall with injury W19.XXXA Encounter type: initial encounter Dementia F03.90 UTI (urinary tract infection) N39.0
--- NOTE | 2022-01-23 08:07 | PM.PN ---
Subjective Subjective: POD 2 Patient is confused. In no apparent distress. Vitals/I&O/Wt Last Vital Signs Temp 98.2 F 01/23/22 07:19 Pulse 63 01/23/22 07:19 Resp 18 01/23/22 07:19 BP 167/75 01/23/22 07:19 Pulse Ox 92 01/23/22 07:19 01/22/22 01/23/22 01/23/22 22:59 06:59 14:59 Intake Total 240 / 720 740 / 1460 Balance 240 / 620 740 / 1360 Physical Exam Narrative: Patient is confused in no obvious deistress, good general appearance normal normal affect. Hip incision is healing nicely. There is no signs of erythema or drainage no signs of infection. Good motor strength throughout both lower extremities. Fires in all motor groups. Skin is clear warm, feet are warm with good cap refill in all digits. Normal sensation to light touch. Calves are supple, no medial thigh tenderness, negative Homans' sign. No palpable edema peripherally. Urinary Catheter Management: Payne: Cath Placed During This Visit: yes, but has since been removed by the nurse Reason for Continuing Indwelling Catheter: Not indwelling catheter Urinary Catheter Date of Insertion: 01/21/22 Urinary Catheter Time of Insertion: 01:29 Date Urinary Catheter Removed: 01/22/22 Data : 01/23/22 02:15 01/23/22 02:15 A&P Assessment and plan (1) Displaced fracture of right femoral neck: Status: Acute Plan Dressing change right hip today. Physical therapy to continue to evaluate and treat. Okay from orthopedic standpoint to transfer to nursing facility when bed available. Rhiannon removed in 12 to 14 days. See her back in the office in 4 weeks time for evaluation. Attestations Medical Necessity Statement*: defer to medical team Coding Level of Care Code Acute Enhanced Environmental Operator for g Fwd Diagnoses Displaced fracture of right femoral neck S72.001A
[2022-01-23 09:23] LABS: Calcium 10.6 mg/dL (8.5-10.5)
[2022-01-23] MEDS: HYDROcodone-acetaminophen 5-325 mg Tablet 1 TAB PO (09:47)
[2022-01-23] MEDS: atenolol 50 mg Tablet PO (09:47)
[2022-01-23] MEDS: lisinopril 20 mg Tablet PO (09:47)
[2022-01-23] MEDS: trazodone 50 mg Tablet PO (09:47)
[2022-01-23] MEDS: donepezil 5 MG Tablet 10 MG PO (09:47)
[2022-01-23] MEDS: cefTRIAXone 1,000 MG in sodium chloride 0.9% (plus) 50 ML 100 MG IV (09:48)
[2022-01-23 10:52] LABS: Parathyroid Hormone 10.7 pg/mL (15-65)
[2022-01-23] MEDS: acetaminophen 325 mg Tablet 650 MG PO (19:45)
--- NOTE | 2022-01-23 19:50 | PC.NURSE ---
tylenol for slightly elevated temp, attempted to give and patient spit out
[2022-01-23] MEDS: sodium chloride 0.9% 1,000 ML 75 ML IV (20:07)
[2022-01-23] MEDS: enoxaparin 30 mg/0.3 mL Syringe SUBCUT (23:01)
[2022-01-24 02:05] LABS: Basophils % 0.2 %; Eosinophils # 0.1 10^3/uL (0.0-0.8); Eosinophils % 0.7 %; Hemoglobin 7.8 g/dL (11.5-15.3); Lymphocytes % 11.6 %; Mean Corpuscular HGB Conc 31.2 g/dL (30.0-36.0); Mean Corpuscular Hemoglobin 29.3 pg (28.0-34.0); Mean Platelet Volume 10.3 fL (7.4-10.4); Monocytes # 0.7 10^3/uL (0.2-0.9); Monocytes % 8.1 %; Neutrophils # 6.98 10^3/uL (1.8-7.7); Neutrophils % 78.8 %; Nucleated Red Blood Cells % 0 %; Platelet Count 209 10^3/cmm (130-400); Red Blood Count 2.66 10^6/uL (4.1-5.3); Red Cell Distribution Width 13.2 % (12.1-15.1); White Blood Count 8.9 10^3/uL (4.0-10.0)
[2022-01-24 02:30] LABS: Anion Gap 13.8 (5-19); Blood Urea Nitrogen 39 mg/dL (8-23); Calcium 10.4 mg/dL (8.5-10.5); Carbon Dioxide 23 mmol/L (22-29); Chloride 111 mmol/L (98-107); Glucose 98 mg/dL (65-115); Osmolality Calculated 307 mOsm/kg (285-295); Potassium 3.8 mmol/L (3.5-5.1); Sodium 144 mmol/L (136-145)
[2022-01-24 04:00] VITALS: BP 168/73; PULSE 65; RESP 18; TEMP 36.9; O2SAT 98
[2022-01-24 07:26] VITALS: BP 178/77; PULSE 67; RESP 18; TEMP 36.4; O2SAT 97
--- NOTE | 2022-01-24 09:15 | PM.DCS ---
Discharge Providers Date of Admission: 01/21/22 01:19 Date of Discharge: January 24, 2022 Attending Provider at Admission: Tayo Espino DO Attending Provider at Discharge: Derek Almeida MD Primary Care Provider: Marcus Guerrero Diagnoses at Discharge Discharge Diagnosis (1) Displaced fracture of right femoral neck: Status: Acute Reason for Visit Reason for Visit: RIGHT HIP PAIN Hospital Course Hospital Course Estefany is a 76-year-old white female with dementia who presented from home after mechanical fall where she sustained a right hip fracture. Orthopedic surgery was consulted. She underwent right hip hemiarthroplasty on January 21. She tolerated the surgery well. There were no obvious complications. Hemoglobin did drift down consistent with acute postoperative blood loss following surgery but she was asymptomatic. She had no evidence of ongoing blood loss so Lovenox was continued. On January 24 it was thought she could discharge to senior living facility. Hemoglobin 7.8 on discharge, in this patient with stable vital signs. She will follow-up with orthopedics, primary care provider in 3 to 5 days, have a CBC in 3 to 5 days. Initially 3 weeks of Lovenox, consideration for extension to another week if she is not significantly mobile by that time. Physical Exam Narrative: General exam is no apparent distress Neck is supple Cardiovascular regular rate and rhythm Lungs clear Abdomen is soft, positive bowel sounds Extremities no cyanosis clubbing or edema. Right hip dressing clean and dry. No significant hematoma Urinary Catheter Management: Payne: Cath Placed During This Visit: yes, but has since been removed by the nurse Reason for Continuing Indwelling Catheter: Not indwelling catheter Urinary Catheter Date of Insertion: 01/23/22 Urinary Catheter Time of Insertion: 23:30 Date Urinary Catheter Removed: 01/22/22 Discharge Data Studies Completed and Pending Completed Studies During Hospitalization Category Date Time Status XR chest 1V portable [id number] Urgent Exams 01/21/22 01:08 Completed XR hip RT 2-3V wo/w pel* [id number] Stat Exams 01/21/22 01:06 Completed Pending at discharge Category Date Time Status Creatine Kinase w/o Total Routine Lab 01/21/22 05:45 Received SARS Covid-2 Antigen Stat Lab 01/24/22 08:58 Uncollected Urine Culture Routine Lab 01/23/22 23:52 Received CV. echo complete* [id number] Routine Ultrasound 01/21/22 02:21 Taken Radiology Impressions Hip/Pelvis X-Ray 01/21/22 01:06 IMPRESSION: Right subcapital femoral neck fracture. Chest X-Ray 01/21/22 01:08 IMPRESSION: 1. No evidence of acute injury. 2. Small hiatal hernia. Laboratory Results WBC 8.9 10^3/uL (4.0-10.0) 01/24/22 01:34 RBC 2.66 10^6/uL (4.1-5.3) L 01/24/22 01:34 Hgb 7.8 g/dL (11.5-15.3) L 01/24/22 01:34 Hct 25.0 % (37.0-47.0) L 01/24/22 01:34 MCV 94.0 fl (81-99) 01/24/22 01:34 MCH 29.3 pg (28.0-34.0) 01/24/22 01:34 MCHC 31.2 g/dL (30.0-36.0) 01/24/22 01:34 RDW 13.2 % (12.1-15.1) 01/24/22 01:34 Plt Count 209 10^3/cmm (130-400) 01/24/22 01:34 MPV 10.3 fL (7.4-10.4) 01/24/22 01:34 Neut % (Auto) 78.8 % 01/24/22 01:34 Lymph % (Auto) 11.6 % 01/24/22 01:34 [place] % (Auto) 8.1 % 01/24/22 01:34 Eos % (Auto) 0.7 % 01/24/22 01:34 Baso % (Auto) 0.2 % 01/24/22 01:34 Neut # (Auto) 6.98 10^3/uL (1.8-7.7) 01/24/22 01:34 Lymph # (Auto) 1.0 10^3/uL (0.8-4.8) 01/24/22 01:34 [place] # (Auto) 0.7 10^3/uL (0.2-0.9) 01/24/22 01:34 Eos # (Auto) 0.1 10^3/uL (0.0-0.8) 01/24/22 01:34 Baso # (Auto) 0.0 10^3/uL (0.0-0.1) 01/24/22 01:34 Nucleated RBC % (auto) 0 % 01/24/22 01:34 Nucleated RBCs # 0.0 /100WBC 01/24/22 01:34 PT 16.30 SECONDS (12.1-14.9) H 01/21/22 05:45 INR 1.27 (0.8-1.2) H 01/21/22 05:45 Sodium 144 mmol/L (136-145) 01/24/22 01:34 Potassium 3.8 mmol/L (3.5-5.1) 01/24/22 01:34 Chloride 111 mmol/L (98-107) H 01/24/22 01:34 Carbon Dioxide 23 mmol/L (22-29) 01/24/22 01:34 Anion Gap 13.8 (5-19) 01/24/22 01:34 BUN 39 mg/dL (8-23) H 01/24/22 01:34 Creatinine 1.1 mg/dL (0.5-0.9) H 01/24/22 01:34 GFR Calculation Not Reportable 01/24/22 01:34 Glucose 98 mg/dL (65-115) 01/24/22 01:34 Calculated Osmolality 307 mOsm/kg (285-295) H 01/24/22 01:34 Calcium 10.4 mg/dL (8.5-10.5) 01/24/22 01:34 Total Bilirubin 0.4 mg/dL (0.15-1.2) 01/22/22 05:48 AST 31 U/L (0-32) 01/22/22 05:48 ALT 12 U/L (0-33) 01/22/22 05:48 Alkaline Phosphatase 73 IU/L (35-105) 01/22/22 05:48 Ammonia 18 umol/L (11-51) 01/21/22 05:45 Troponin T Gen 5 ng/L 22 ng/L (0-10) H 01/21/22 05:45 Total Protein 5.6 g/dL (6.6-8.7) L 01/22/22 05:48 Albumin 3.3 g/dL (3.5-5.2) L 01/22/22 05:48 Globulin 2.3 g/dL (1.3-4.6) 01/22/22 05:48 Vitamin B12 582 pg/mL (232-1245) 01/22/22 05:48 TSH 0.49 uIU/mL (0.27-4.20) 01/22/22 05:48 PTH Intact 10.7 pg/mL (15-65) L 01/23/22 08:45 Calcium (PTH Intact) 10.6 mg/dL (8.5-10.5) H 01/23/22 08:45 Urine Color Yellow (Yellow) 01/22/22 00:20 Urine Appearance Sl hazy (CLEAR) 01/22/22 00:20 Urine pH 6 (5-7) 01/22/22 00:20 Ur Specific [place] 1.015 (1.005-1.030) 01/22/22 00:20 Urine Protein 2+ (Negative) H 01/22/22 00:20 Urine Glucose (UA) Norm (Normal) 01/22/22 00:20 Urine Ketones Negative (Negative) 01/22/22 00:20 Urine Blood 3+ (Negative) H 01/22/22 00:20 Urine Nitrate Positive (Negative) H 01/22/22 00:20 Urine Bilirubin Neg (Negative) 01/22/22 00:20 Urine Urobilinogen Norm mg/dL (Negative) 01/22/22 00:20 Ur Leukocyte Esterase 2+ (Negative) H 01/22/22 00:20 Urine RBC Too numerous to cnt /hpf (0-2) H 01/22/22 00:20 Urine WBC Too numerous to cnt /hpf (0-5) H 01/22/22 00:20 Ur Squamous Epith Cells 40-55 /hpf (0-5) H 01/22/22 00:20 Amorphous Sediment Not Reportable 01/22/22 00:20 Urine Bacteria 4+ /hpf (NONE) H 01/22/22 00:20 Vitals Last Vital Signs Temp 97.6 F 01/24/22 07:26 Pulse 67 01/24/22 07:26 Resp 18 01/24/22 07:26 BP 178/77 01/24/22 07:26 Pulse Ox 97 01/24/22 07:26 Discharge Plan Discharge Patient Disposition: Xfer SNF Condition: Stable Prescriptions: New hydrocodone-acetaminophen 5-325 mg Tablet 1 tab PO Q4H PRN (Reason: Moderate To Severe Pain) Qty: 20 0RF cefdinir 300 mg capsule 300 mg PO BID 5 Days Qty: 10 0RF enoxaparin [Lovenox] 30 mg/0.3 mL syringe 30 mg SUBCUT Q24H Qty: 4.2 0RF Continued trazodone 50 mg tablet 50 mg PO DAILY 0RF donepezil 10 mg tablet 10 mg PO DAILY 0RF lisinopril 20 mg tablet 20 mg PO DAILY 0RF atenolol 50 mg tablet 50 mg PO DAILY 0RF Discharge Orders: Discharge Order (Routine); Ordered 01/24/22 Ordered By: Derek Almeida Referrals: [facility] [Outside] Marcus Guerrero [Primary Care Provider] - Discharge Diet: Regular Discharge Activity: Increase activity as tolerated Activity Restrictions/Additional Instructions: You are being discharged from the hospital today during which time you have been under the care of Dr Kunz. You had a right femoral neck fracture. You were treated for this injury with Right hip hmiarthoplasty. You may resume you normal diet (including any special diets as directed by your primary doctor) as well as your home medications. You should follow up with you primary doctor if you have any questions regarding medication you took prior to your stay in the hospital. You may take your pain medication as prescribed. After the first few days, take your pain medication as needed. Do not drive or drink alcohol while taking your pain medication. Your injury may increase your risk of developing a blood clot,or DVT, in your arm or leg. This could potentially dislodge and travel to your lungs and become a life threatening condition called apulmonary embolus,or PE. You have been prescribed lovenox or ASA to be taken to prevent this. Frequent movement of the legs will also help prevent this from occurring. If you develop any new or worsening cough, chestpain, bloody sputum or shortness of breath, call 911 or go to the EmergencyRoom. Always keep your surgical incision/dressing clean and dry. If you experience increasing pain at your incision site, redness, swelling, increasing discharge, foul odors, or fevers (greater than 100.4), night sweats or chills you should call the office at the above number. If you feel this is an emergency you should be evaluated in the Emergency Department of a nearby hospital. Orthopedic Patient Instructions Summary: Weight Bearing: WBAT Activity: as tolerated. Diet: regular. Wound Care: Keep dressing clean and dry. change as needed Anticoagulation: lovenox or ASA Pain Medication: Take only as needed. Ice, rest and elevation will be of great benefit. Please plan to follow-up wlth Dr Kunz in 2 weeks. You will need to call the clinic [phone] to schedule this visit. Thank you far allowing me to participate in your care. Do not hesitate to call the office with any questions or concerns. Take all medicine as prescribed Follow-up with primary care provider at senior living facility in 3 to 4 days CBC in 3 days Note Lovenox for 14 days. Could consider additional 1 week, showed patient's mobility still be a significant issue. Keep orthopedic follow-up Discharge Attestations Time Spent in Discharge Care*: greater than 30 min Quality Metrics Clinical Quality Measures [ No reported AMI, CVA or VTE this stay] Coding Level of Care Code Acute [facility] note Diagnoses Displaced fracture of right femoral neck S72.001A
[2022-01-24] MEDS: trazodone 50 mg Tablet PO (09:23)
[2022-01-24] MEDS: lisinopril 20 mg Tablet PO (09:23)
[2022-01-24] MEDS: atenolol 50 mg Tablet PO (09:23)
[2022-01-24] MEDS: donepezil 5 MG Tablet 10 MG PO (09:24)
[2022-01-24] MEDS: HYDROcodone-acetaminophen 5-325 mg Tablet 1 TAB PO (09:24)
[2022-01-24] MEDS: cefTRIAXone 1,000 MG in sodium chloride 0.9% (plus) 50 ML 100 MG IV (09:28)
[2022-01-24 10:44] LABS: SARS Covid-2 Antigen Negative (Negative)
--- NOTE | 2022-01-24 11:12 | PC.SOCIAL ---
Pg 2 IMM Explained to pt's son Marcus, via phone, Pg 2 IMM. No questions voiced. Provided pt a copy. Initialed, dated, & timed a copy & placed in chart.
[2022-01-24 12:00] VITALS: BP 142/54; PULSE 57; RESP 18; TEMP 36.5; O2SAT 96
--- NOTE | 2022-01-24 12:36 | P.PN_ITS ---
Subjective Subjective: POD 3 Patient up in the chair, confused. No apparent distress. Vitals/I&O/Wt Last Vital Signs Temp 97.7 F 01/24/22 12:00 Pulse 57 L 01/24/22 12:00 Resp 18 01/24/22 12:00 BP 142/54 01/24/22 12:00 Pulse Ox 96 01/24/22 12:00 01/23/22 01/24/22 01/24/22 22:59 06:59 14:59 Intake Total 959.167 / 7927.292 9111 / 1170 Output Total 1075 / 1125 Balance 959.167 / 1229.167 -1075 / 175.211 6147 / 1170 Physical Exam Narrative: Patient is confused in no obvious distress,? good general appearance normal normal affect.? Hip incision is healing nicely. ? There is no signs of erythema or drainage no signs of infection.? Good motor strength throughout both lower extremities.? Fires in all motor groups.? Skin is clear warm, feet are warm with good cap refill in all digits.? Normal sensation to light touch.? Calves are supple,? no medial thigh tenderness, negative Homans' sign.? No palpable edema peripherally. Urinary Catheter Management: Payne: Cath Placed During This Visit: yes, but has since been removed by the nurse Reason for Continuing Indwelling Catheter: Not indwelling catheter Urinary Catheter Date of Insertion: 01/23/22 Urinary Catheter Time of Insertion: 23:30 Date Urinary Catheter Removed: 01/22/22 Data : 01/24/22 01:34 01/24/22 01:34 A&P Assessment and plan (1) Displaced fracture of right femoral neck: Please change dressing to the right hip. New [place] dressing. Rhiannon to be removed in 2 weeks at the nursing facility. Continue incentive spirometry as tolerated. Continue physical therapy weightbearing as tolerated. Status: Acute Attestations Medical Necessity Statement*: defer to medical team Coding Level of Care Code Acute [employer]g Fwd Diagnoses Displaced fracture of right femoral neck S72.001A
[2022-01-24 14:32] VITALS: BP 142/54; PULSE 57; RESP 18; TEMP 36.5; O2SAT 96
[2022-01-25 17:05] LABS: Creatine Kinase BB Total None Detected (None Detected); Creatine Kinase MB Total 0 % (<5); Creatine Kinase MM Total 100 % (95-100)
== END 2022-01-24 13:30 | disposition skilled nursing facility (03) | DRG 522 ==
LOC: ER 01:35 → MEDSURG 01:36
PROVIDERS: Family Medicine; Orthopaedic Surgery; Admitting Provider Internal Medicine; Emergency Provider Emergency Medicine; PCP Physician Assistant Medical; Visit Provider Internal Medicine
PROC: 0SRR0JA Replacement of Right Hip Joint, Femoral Surface with Synthetic Substitute, Uncemented, Open Approach (ICD-10-PCS; principal; 2022-01-21 10:20)
DX: S72.001A Fracture of unspecified part of neck of right femur, initial encounter for closed fracture (principal); N39.0 Urinary tract infection, site not specified; D62 Acute posthemorrhagic anemia; W19.XXXA Unspecified fall, initial encounter; F03.90 Unspecified dementia, unspecified severity, without behavioral disturbance, psychotic disturbance, mood disturbance, and anxiety; E83.52 Hypercalcemia; N28.9 Disorder of kidney and ureter, unspecified; I10 Essential (primary) hypertension; E87.6 Hypokalemia; R33.9 Retention of urine, unspecified
CPT/HCPCS: 36415; 51702; 71045; 73502; 80048; 80053; 81001; 82140; 82252; 82310; 82607; 83970; 84443; 84484; 85025; 85610; 87086; 87426; 93005; 93306; 94664; 96372; 96374; 96375; 97161; 97167; 97530; 97535; 99285; C1713; C1776; J0360; J0696; J1650; J1885; J2270; J2405; J2704; J3010; J3490; J7030

== ENCOUNTER 2022-01-26 08:28 | Outpatient (CLI) | payer OTHER, MEDICARE, SELFPAY ==
--- NOTE | 2022-01-26 12:16 | PC.NURSE ---
Dr. Almeida notified of patients HGB. Verbal order given to not administer blood and return patient back to [facility].
--- NOTE | 2022-01-26 13:51 | PC.NURSE ---
[facility] notified that patient will not be receiving a blood transfusion. Patient left via [facility] transportation. copy of labs sent with patient.
== END 2022-01-26 13:58 | disposition skilled nursing facility (03) ==
LOC: GILAB 08:28 → MEDSURG 08:29
PROVIDERS: PCP Physician Assistant Medical; Visit Provider Internal Medicine
DX: D64.9 Anemia, unspecified (principal)
CPT/HCPCS: 85018; 86850; 86900; 86920

== ENCOUNTER 2022-01-29 14:08 | Outpatient (CLI) | payer MEDICARE, OTHER, SELFPAY ==
[2022-01-29 14:22] LABS: Basophils # 0.1 10^3/uL (0.0-0.1); Basophils % 0.5 %; Eosinophils # 0.2 10^3/uL (0.0-0.8); Eosinophils % 1.3 %; Hematocrit 29.6 % (37.0-47.0); Hemoglobin 9.4 g/dL (11.5-15.3); Lymphocytes # 1.1 10^3/uL (0.8-4.8); Lymphocytes % 8.9 %; Mean Corpuscular HGB Conc 31.8 g/dL (30.0-36.0); Mean Corpuscular Hemoglobin 29.8 pg (28.0-34.0); Mean Platelet Volume 10.1 fL (7.4-10.4); Monocytes # 0.7 10^3/uL (0.2-0.9); Neutrophils # 9.77 10^3/uL (1.8-7.7); Neutrophils % 82.9 %; Nucleated Red Blood Cells % 0 %; Platelet Count 450 10^3/cmm (130-400); Red Blood Count 3.15 10^6/uL (4.1-5.3); White Blood Count 11.8 10^3/uL (4.0-10.0)
== END 2022-01-29 14:09 | disposition home or self-care (01) ==
LOC: LAB 14:10
PROVIDERS: Visit Provider Nurse Practitioner Family
DX: I10 Essential (primary) hypertension (principal); Z79.899 Other long term (current) drug therapy
CPT/HCPCS: 85025

== ENCOUNTER 2022-02-08 17:32 | Outpatient (CLI) | payer MEDICARE, OTHER, SELFPAY ==
[2022-02-08 17:51] LABS: Basophils % 0.4 %; Eosinophils # 0.2 10^3/uL (0.0-0.8); Eosinophils % 2.1 %; Hematocrit 26.9 % (37.0-47.0); Hemoglobin 8.2 g/dL (11.5-15.3); Lymphocytes # 1.4 10^3/uL (0.8-4.8); Lymphocytes % 15.9 %; Mean Corpuscular HGB Conc 30.5 g/dL (30.0-36.0); Mean Corpuscular Hemoglobin 29.3 pg (28.0-34.0); Mean Corpuscular Volume 96.1 fl (81-99); Mean Platelet Volume 10.3 fL (7.4-10.4); Monocytes # 0.7 10^3/uL (0.2-0.9); Monocytes % 7.7 %; Neutrophils # 6.63 10^3/uL (1.8-7.7); Nucleated Red Blood Cells % 0 %; Platelet Count 370 10^3/cmm (130-400); Red Cell Distribution Width 13.4 % (12.1-15.1); White Blood Count 9.1 10^3/uL (4.0-10.0)
== END 2022-02-08 17:33 | disposition home or self-care (01) ==
PROVIDERS: Visit Provider Nurse Practitioner Family
DX: D64.9 Anemia, unspecified (principal)
CPT/HCPCS: 85025

== ENCOUNTER → 2022-02-13 08:38 | Outpatient (BNVA) | payer MEDICARE, OTHER, SELFPAY | PROVIDERS: Visit Provider Physician Assistant | DX: Z47.89 Encounter for other orthopedic aftercare (principal); Z98.890 Other specified postprocedural states; Z96.641 Presence of right artificial hip joint | CPT/HCPCS: 73502; 99024; 99999 ==

== ENCOUNTER 2022-02-15 09:26 | Outpatient (CLI) | payer MEDICARE, SELFPAY ==
[2022-02-15 10:02] LABS: Basophils # 0.1 10^3/uL (0.0-0.1); Basophils % 0.5 %; Eosinophils # 0.2 10^3/uL (0.0-0.8); Eosinophils % 1.6 %; Hematocrit 25.1 % (37.0-47.0); Hemoglobin 7.9 g/dL (11.5-15.3); Lymphocytes # 1.1 10^3/uL (0.8-4.8); Mean Corpuscular HGB Conc 31.5 g/dL (30.0-36.0); Mean Corpuscular Hemoglobin 30.6 pg (28.0-34.0); Mean Corpuscular Volume 97.3 fl (81-99); Mean Platelet Volume 10.5 fL (7.4-10.4); Monocytes # 0.6 10^3/uL (0.2-0.9); Monocytes % 4.7 %; Neutrophils # 10.25 10^3/uL (1.8-7.7); Neutrophils % 83.7 %; Nucleated Red Blood Cells % 0 %; Platelet Count 314 10^3/cmm (130-400); Red Blood Count 2.58 10^6/uL (4.1-5.3); Red Cell Distribution Width 14.5 % (12.1-15.1); White Blood Count 12.2 10^3/uL (4.0-10.0)
== END 2022-02-15 09:27 | disposition home or self-care (01) ==
PROVIDERS: Visit Provider Nurse Practitioner Family
DX: D64.9 Anemia, unspecified (principal)
CPT/HCPCS: 85025

== ENCOUNTER → 2022-03-01 13:05 | Outpatient (BNVA) | payer MEDICARE, OTHER, SELFPAY | PROVIDERS: PCP Family Medicine; Visit Provider Nurse Practitioner Family | DX: R33.9 Retention of urine, unspecified (principal) | CPT/HCPCS: 99203 ==

== ENCOUNTER 2022-03-10 11:21 | Inpatient (IN) | payer MEDICARE, OTHER, SELFPAY ==
--- NOTE | 2022-03-10 11:26 | XRR_ITS ---
PROCEDURE INFORMATION: Exam: XR Left Hip Exam date and time: 03/10/2022 12:12 PM Age: 76 years old Clinical indication: Injury or trauma; Fall; Blunt trauma (contusions or hematomas); Left; Hip TECHNIQUE: Imaging protocol: XR Left hip. Views: 2 or 3 views hip with pelvis when performed. COMPARISON: No relevant prior studies available. FINDINGS: Bones/joints: There is an ill-defined lucency through the left femoral neck, consistent with fracture. Degenerative changes extend across the left hip joint. Soft tissues: Edema is present in the soft tissues adjacent to the left hip. XR/XR hip LT 2-3V wo/w pel* [id number] IMPRESSION: Ill-defined fracture through the left femoral neck.
[2022-03-10 11:27] VITALS: BP 172/86; PULSE 92; RESP 14; TEMP 37.1; O2SAT 92; BMI 27.4
--- NOTE | 2022-03-10 11:27 | XRR_ITS ---
PROCEDURE INFORMATION: Exam: XR Chest Exam date and time: 03/10/2022 12:12 PM Age: 76 years old Clinical indication: Injury or trauma; Fall; Blunt trauma (contusions or hematomas) TECHNIQUE: Imaging protocol: XR of the chest. Views: 1 view. COMPARISON: CR XR chest 1V portable [id number] 01/21/2022 1:15 AM FINDINGS: Lungs: Unremarkable. No consolidation. Pleural spaces: Unremarkable. No pleural effusion. No pneumothorax. Heart/Mediastinum: Unremarkable. No cardiomegaly. Bones/joints: Unremarkable. XR/XR chest 1V portable [id number] IMPRESSION: No acute findings.
--- NOTE | 2022-03-10 11:31 | ED_ITS ---
HPI - Fall General: Chief Complaint: Fall Stated Complaint: LEFT HIP FX S/P FALL Time Seen by Provider: 03/10/22 11:22 History of Present Illness: 76-year-old female sent in by fdc. Patient presents via EMS following a fall. long term reports that she fell around 430 this morning. They did an x-ray and reports that she has a fracture in her left hip. Patient has dementia and provides little information. Patient does complain of some pain in her left leg. Associated symptoms-after fall: Denies abdominal pain or chest pain Review of Systems General: Reports: Other (Limited based on dementia history) Const: Denies: fever(s) or chills Card: Denies: chest pain or palpitations Resp: Denies: dyspnea or productive cough GI: Denies: abdominal pain, nausea or vomiting Musc: Reports: extremity pain Skin/Breast: Denies: rash Psych: Reports: other (Please see HPI) PFSH ED PFSH: Medical History (Updated 03/10/22 @ 13:35 by Pacheco Mancilla MD) Anemia Dementia HTN (hypertension) Urinary retention Surgical History History of right hip hemiarthroplasty Social History Smoking and tobacco status: former smoker Alcohol intake: never Marital status: / Current occupational status: disabled History of recent travel: No Physical Exam Const: COMMON NORMALS: no acute distress and average body habitus Neck/C-Spine: COMMON NORMALS: full ROM and supple Resp: COMMON NORMALS: normal respiratory effort, No retractions, No use of accessory muscles and clear to auscultation bilaterally AUSCULTATION: clear to auscultation bilaterally Cardio: COMMON NORMALS: regular rate and regular rhythm RATE: regular rate RHYTHM: regular rhythm GI: COMMON NORMALS: Soft to palpation and non-tender PALPATION: Yes Soft to palpation Extremity: LEFT LOWER EXTREMITY: Yes hip joint (EXTR externally rotated and shortened, painful and limited range of motion) Neuro: COMMON NORMALS: no focal motor deficits SENSORIUM/ORIENTATION: Yes other (Patient at baseline per EMS and fdc report) Skin: COMMON NORMALS: no rashes or lesions noted GENERAL SKIN EXAM: no rashes or lesions noted Course Vital Signs: Vital signs: Vital Signs Temperature 98.7 F 03/10/22 11:27 Pulse Rate 92 03/10/22 11:27 Respiratory Rate 18 03/10/22 14:38 Blood Pressure 183/96 03/10/22 14:38 Pulse Oximetry 92 03/10/22 11:27 MDM - Fall Medical Decision Making Patient with left hip fracture. Discussed with Dr. Vasuqez who will see patient and likely repair tomorrow morning. Patient to be admitted to the hospitalist. Discussed with Dr. MANCILLA who graciously excepted patient for admission. Patient to be admitted in stable condition. Lab Data : 03/10/22 11:54 03/10/22 11:54 Radiology Impressions Hip/Pelvis X-Ray 03/10/22 11:26 IMPRESSION: Ill-defined fracture through the left femoral neck. Chest X-Ray 03/10/22 11:27 IMPRESSION: No acute findings. Laboratory Results WBC 10.3 10^3/uL (4.0-10.0) H 03/10/22 11:54 RBC 3.12 10^6/uL (4.1-5.3) L 03/10/22 11:54 Hgb 9.0 g/dL (11.5-15.3) L 03/10/22 11:54 Hct 29.5 % (37.0-47.0) L 03/10/22 11:54 MCV 94.6 fl (81-99) 03/10/22 11:54 MCH 28.8 pg (28.0-34.0) 03/10/22 11:54 MCHC 30.5 g/dL (30.0-36.0) 03/10/22 11:54 RDW 14.7 % (12.1-15.1) 03/10/22 11:54 Plt Count 328 10^3/cmm (130-400) 03/10/22 11:54 MPV 9.1 fL (7.4-10.4) 03/10/22 11:54 Neut % (Auto) 83.2 % 03/10/22 11:54 Lymph % (Auto) 9.7 % 03/10/22 11:54 [place] % (Auto) 6.0 % 03/10/22 11:54 Eos % (Auto) 0.1 % 03/10/22 11:54 Baso % (Auto) 0.4 % 03/10/22 11:54 Neut # (Auto) 8.53 10^3/uL (1.8-7.7) H 03/10/22 11:54 Lymph # (Auto) 1.0 10^3/uL (0.8-4.8) 03/10/22 11:54 [place] # (Auto) 0.6 10^3/uL (0.2-0.9) 03/10/22 11:54 Eos # (Auto) 0.0 10^3/uL (0.0-0.8) 03/10/22 11:54 Baso # (Auto) 0.0 10^3/uL (0.0-0.1) 03/10/22 11:54 Nucleated RBC % (auto) 0 % 03/10/22 11:54 Nucleated RBCs # 0.0 /100WBC 03/10/22 11:54 Sodium 141 mmol/L (136-145) 03/10/22 11:54 Potassium 4.4 mmol/L (3.5-5.1) 03/10/22 11:54 Chloride 103 mmol/L (98-107) 03/10/22 11:54 Carbon Dioxide 29 mmol/L (22-29) 03/10/22 11:54 Anion Gap 13.4 (5-19) 03/10/22 11:54 BUN 21 mg/dL (8-23) 03/10/22 11:54 Creatinine 1.0 mg/dL (0.5-0.9) H 03/10/22 11:54 GFR Calculation Not Reportable 03/10/22 11:54 Glucose 104 mg/dL (65-115) 03/10/22 11:54 Calculated Osmolality 295 mOsm/kg (285-295) 03/10/22 11:54 Calcium 9.2 mg/dL (8.5-10.5) 03/10/22 11:54 Total Bilirubin 0.2 mg/dL (0.15-1.2) 03/10/22 11:54 AST 24 U/L (0-32) 03/10/22 11:54 ALT 12 U/L (0-33) 03/10/22 11:54 Alkaline Phosphatase 90 IU/L (35-105) 03/10/22 11:54 Total Protein 6.7 g/dL (6.6-8.7) 03/10/22 11:54 Albumin 3.4 g/dL (3.5-5.2) L 03/10/22 11:54 Globulin 3.3 g/dL (1.3-4.6) 03/10/22 11:54 Imaging Data Xray Ortho: My impression: Left hip fracture Radiologist's impression: Left hip fracture CXR: My impression: No acute findings Radiologist's impression: No acute finding Discharge Plan Discharge Patient Disposition: Admitted As Inpatient Admit Provider: Pacheco Mancilla Clinical Impression: Fracture of hip Condition: Stable Coding Level of Care Code ED Production Support Developer for Andrew Fwd Exam Comprehensive
[2022-03-10] MEDS: fentaNYL 50 mcg/mL INJ 2mL 25 MCG IVP (12:00)
[2022-03-10 12:02] LABS: Basophils % 0.4 %; Eosinophils % 0.1 %; Hematocrit 29.5 % (37.0-47.0); Lymphocytes % 9.7 %; Mean Corpuscular HGB Conc 30.5 g/dL (30.0-36.0); Mean Corpuscular Hemoglobin 28.8 pg (28.0-34.0); Mean Corpuscular Volume 94.6 fl (81-99); Mean Platelet Volume 9.1 fL (7.4-10.4); Monocytes # 0.6 10^3/uL (0.2-0.9); Neutrophils # 8.53 10^3/uL (1.8-7.7); Neutrophils % 83.2 %; Nucleated Red Blood Cells % 0 %; Platelet Count 328 10^3/cmm (130-400); Red Blood Count 3.12 10^6/uL (4.1-5.3); Red Cell Distribution Width 14.7 % (12.1-15.1); White Blood Count 10.3 10^3/uL (4.0-10.0)
[2022-03-10 12:18] LABS: Alanine Aminotransferase 12 U/L (0-33); Albumin Level 3.4 g/dL (3.5-5.2); Alkaline Phosphatase 90 IU/L (35-105); Anion Gap 13.4 (5-19); Aspartate Amino Transferase 24 U/L (0-32); Blood Urea Nitrogen 21 mg/dL (8-23); Calcium 9.2 mg/dL (8.5-10.5); Carbon Dioxide 29 mmol/L (22-29); Chloride 103 mmol/L (98-107); Globulin 3.3 g/dL (1.3-4.6); Glucose 104 mg/dL (65-115); Osmolality Calculated 295 mOsm/kg (285-295); Potassium 4.4 mmol/L (3.5-5.1); Sodium 141 mmol/L (136-145); Total Bilirubin 0.2 mg/dL (0.15-1.2); Total Protein 6.7 g/dL (6.6-8.7)
--- NOTE | 2022-03-10 13:12 | P.HP_ITS ---
Providers/Chief Complaint Primary Care Provider: Sahara Almeida MD Chief Complaint: LEFT HIP FX S/P FALL History of Present Illness 76-year-old lady with dementia, on dementia unit at [facility], climbed out of bed, fell down, with resultant left hip pain, everted shoulder left lower extremity, with left hip fracture on x-ray. Other medical history includes recent urinary retention following last hospitalization after right hip fracture and repair, required Payne catheter temporarily, subsequently Payne was discontinued with twice daily straight catheterizations, per report from [place] [facility] only minimal residuals were noted, and straight caths were discontinued. She has been urinating. She otherwise has not had any recent complaints. She requires quite a bit of assistance, tries to get out from bed frequently. With assistance transfers to wheelchair in which she gets around. Requires assistance with feeding. Eats soft diet. History obtained from ER physician, [place] [facility], son. She is unable to provide any history, is pleasantly confused, but does seem to remember getting hip fracture before. Does not know where she is or what year it is. Denies any pain or discomfort. Review of Systems General: Reports: ROS unobtainable due to medical condition Medications/Allergies Home Medications Medication Instructions Recorded Confirmed Last Taken Type atenolol 50 mg tablet 50 mg PO DAILY 01/21/22 03/01/22 Unknown History donepezil 10 mg tablet 10 mg PO DAILY 01/21/22 03/01/22 Unknown History lisinopril 20 mg tablet 20 mg PO DAILY 01/21/22 03/01/22 Unknown History trazodone 50 mg tablet 50 mg PO DAILY 01/21/22 03/01/22 Unknown History hydrocodone 5 mg-acetaminophen 325 1 tab PO Q4H PRN #20 tab 01/24/22 03/01/22 Unknown Rx mg tablet magnesium hydroxide 400 mg/5 mL 30 ml PO BID PRN ml 03/01/22 03/01/22 Unknown History oral suspension (Dulcolax (magnesium hydroxide)) tamsulosin 0.4 mg capsule 0.4 mg PO DAILY 03/01/22 03/01/22 Unknown History Allergies Allergy/AdvReac Type Severity Reaction Status Date / Time diphenhydramine Allergy ADR-Cramping Verified 03/01/22 13:23 [From Benadryl] of the Muscles gabapentin Allergy ADR-Halluci Verified 03/01/22 13:23 nating omeprazole Allergy ADR-Vomitin Verified 03/01/22 13:23 g Penicillins Allergy ADR-Cramping Verified 03/01/22 13:23 of the Muscles tetanus and diphtheria Allergy ALGY-Hives Verified 03/01/22 13:23 toxoids Tetracyclines Allergy ADR-Cramping Verified 03/01/22 13:23 of the Muscles PFSH Acute PFSH: Medical History (Updated 03/10/22 @ 13:35 by Pacheco Robert MD) Anemia Dementia HTN (hypertension) Urinary retention Surgical History History of right hip hemiarthroplasty Social History Smoking and tobacco status: former smoker Alcohol intake: never Marital status: / Current occupational status: disabled History of recent travel: No Vitals/I&O/Wt Last Vital Signs Temp 98.7 F 03/10/22 11:27 Pulse 92 03/10/22 11:27 Resp 14 03/10/22 11:27 BP 172/86 03/10/22 11:27 Pulse Ox 92 03/10/22 11:27 Weight last 48 hrs Weight 68.039 kg Physical Exam Const: COMMON NORMALS: alert; negative for patient oriented x3 GENERAL APPEARANCE: cooperative and anxious ORIENTATION/CONSCIOUSNESS: Yes awake OTHER: Pleasantly confused HENMT: COMMON NORMALS: normocephalic, EAC's normal, Normal external nose present and moist oral mucous membranes HEAD & SCALP: normocephalic NOSE: Normal external nose present EXTERNAL AUDITORY CANAL: EAC's normal Neck/C-Spine: COMMON NORMALS: no meningeal signs Chest: CHEST: Yes Symmetrical chest wall rise Resp: COMMON NORMALS: clear to auscultation bilaterally AUSCULTATION: clear to auscultation bilaterally Cardio: COMMON NORMALS: regular rate, regular rhythm and No murmurs present (Cardio) RATE: regular rate RHYTHM: regular rhythm GI: COMMON NORMALS: Normal to inspection, nondistended, normoactive bowel sounds present, Soft to palpation and non-tender PALPATION: Yes Soft to palpation Extremity: COMMON NORMALS: no pedal edema OTHER: Everted, shortened LLE Neuro: COMMON NORMALS: moves all extremities SENSORIUM/ORIENTATION: Yes alert MENINGEAL SIGNS: Yes no meningeal signs Skin: COMMON NORMALS: no wounds RASHES: no rashes Data : 03/10/22 11:54 03/10/22 11:54 A&P Assessment and plan (1) Fracture of hip: Left hip fracture after fall after climbing out of bed. Maintain fall precautions. Pending orthopedic assessment. Tentative plan for likely repair for tomorrow. Discussed with her son elevated risk of delirium given underlying dementia, and he reports that she did have confusion after last surgery. Discussed also prior issues with urinary retention. Currently Payne catheter is placed. N.p.o. after midnight. 1 dose of heparin, continue SCDs. Prophylaxis after surgery. Pain control. Monitor hemoglobin and she does have anemia. Status: Acute Qualifiers: Encounter type: initial encounter Fracture type: closed Laterality: left Qualified Code(s): S72.002A - Fracture of unspecified part of neck of left femur, initial encounter for closed fracture (2) Anemia: Hemoglobin 9. Nursing reports recently sent out 3 Hemoccult test. Status: Acute (3) Urinary retention: Urinary retention following last hospitalization, Payne catheter discontinued 2 weeks ago, subsequently a week of straight catheterizations twice daily with reported minimal residuals, these were stopped. Has been urinating since then. Check UA. Status: Resolved (4) Dementia: Assistance with transfers, transfers into wheelchair. Needs assistance with feeding. Eats soft diet. Status: Acute Plan HTN: Hold lisinopril preoperatively. Medications need to be confirmed. Attestations Medical Necessity Statement*: Admission of over 2 midnights needed for as sessment of management of fall with left hip fracture lady with underlying dementia, anemia, prior issues with urinary retention. 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
--- NOTE | 2022-03-10 13:47 | PM.CONSULT ---
Providers/Reason For Consult Consulting Physician/Specialty*: hospitalist Reason for Consult*: left hip fracture Attending Physician: Pacheco Robert Primary Care Provider: Sahara Almeida MD History of Present Illness History of Present Illness 76-year-old lady with dementia, on dementia unit at [facility], climbed out of bed, fell down, with resultant left hip pain, with left hip fracture on x-ray. I had done her right hip back in January. Review of Systems General: Reports: ROS unobtainable due to medical condition Medications/Allergies Home Medications Medication Instructions Recorded Confirmed Last Taken Type atenolol 50 mg tablet 50 mg PO DAILY 01/21/22 03/10/22 Unknown History donepezil 10 mg tablet 10 mg PO DAILY 01/21/22 03/10/22 Unknown History lisinopril 20 mg tablet 20 mg PO DAILY 01/21/22 03/10/22 Unknown History trazodone 50 mg tablet 50 mg PO DAILY 01/21/22 03/10/22 Unknown History hydrocodone 5 mg-acetaminophen 325 1 tab PO Q4H PRN #20 tab 01/24/22 03/10/22 Unknown Rx mg tablet magnesium hydroxide 400 mg/5 mL 30 ml PO BID PRN ml 03/01/22 03/10/22 Unknown History oral suspension (Dulcolax (magnesium hydroxide)) tamsulosin 0.4 mg capsule 0.4 mg PO DAILY 03/01/22 03/10/22 Unknown History bisacodyl 10 mg rectal suppository 10 mg DE DAILY PRN 03/10/22 03/10/22 Unknown History Allergies Allergy/AdvReac Type Severity Reaction Status Date / Time diphenhydramine Allergy ADR-Cramping Verified 03/01/22 13:23 [From Benadryl] of the Muscles gabapentin Allergy ADR-Halluci Verified 03/01/22 13:23 nating omeprazole Allergy ADR-Vomitin Verified 03/01/22 13:23 g Penicillins Allergy ADR-Cramping Verified 03/01/22 13:23 of the Muscles tetanus and diphtheria Allergy ALGY-Hives Verified 03/01/22 13:23 toxoids Tetracyclines Allergy ADR-Cramping Verified 03/01/22 13:23 of the Muscles PFSH Acute PFSH: Medical History (Updated 03/10/22 @ 13:35 by Pacheco Robert MD) Anemia Dementia HTN (hypertension) Urinary retention Surgical History History of right hip hemiarthroplasty Social History Smoking and tobacco status: former smoker Alcohol intake: never Marital status: / Current occupational status: disabled History of recent travel: No Vitals/I&O/Wt Last Vital Signs Temp 98.7 F 03/10/22 11:27 Pulse 92 03/10/22 11:27 Resp 14 03/10/22 11:27 BP 172/86 03/10/22 11:27 Pulse Ox 92 03/10/22 11:27 Weight last 48 hrs Weight 150 lb Physical Exam Narrative: Const:?? COMMON NORMALS: al ert; negative for patient oriented x 3? GENERAL APPEARA NCE: cooperative a nd anxious? ORIENT ATION/CONSCIOUSNES S: Yes awake? OTHE R: Pleasantly conf used HENMT:?? COMMON NORMALS: no rmocephalic, EAC's normal, Normal ex ternal nose presen t and moist oral m ucous membranes? H EAD & SCALP: normo cephalic? NOSE: No rmal external nose present? EXTERNAL AUDITORY CANAL: E AC's normal Neck/C-Spine:?? COMMON NORMALS: no meningeal signs Chest:?? CHEST: Yes Symmetr ical chest wall ri se Resp:?? COMMON NORMALS: cl ear to auscultatio n bilaterally? AUS CULTATION: clear t o auscultation coreen aterally Cardio:?? COMMON NORMALS: re gular rate, regula r rhythm and No mu rmurs present (Car glo)? RATE: regula r rate? RHYTHM: re gular rhythm GI:?? COMMON NORMALS: No rmal to inspection , nondistended, no rmoactive bowel so unds present, Soft to palpation and non-tender? PALPAT ION: Yes Soft to p alpation Extremity:?? COMMON NORMALS: no pedal edema? OTHE R: Everted, shorte alhaji LLE Neuro:?? COMMON NORMALS: mo ves all extremitie s? SENSORIUM/ORIEN TATION: Yes alert? MENINGEAL SIGNS: Yes no meningeal s igns Skin:?? COMMON NORMALS: no wounds? RASHES: n o rashes Data : 03/10/22 11:54 03/10/22 11:54 A&P Assessment and plan (1) Fracture of hip: Left hip hemiarthroplasty. I did discuss the fracture and plan for tx with the son Cristhian. I had an open and honest discussion with the son about the risks, benefits and alternatives to both surgical and nonsurgical treatment. The son verbalized understanding of the inherent unpredictability associated with surgery. Risk of surgery were discussed including, but not limited to, infection, bleeding, temporary and permanent nerve damage, continued pain, stiffness, incomplete healing, need for revision surgery, blood clot and other complications. The patient verbalized understanding that there is spine is elective in nature and if they find any of these risks to be unacceptable then they should choose not to have the surgery. The son verbalized understanding of these risks and elected to proceed with the surgery. Status: Acute Qualifiers: Encounter type: initial encounter Fracture type: closed Laterality: left Qualified Code(s): S72.002A - Fracture of unspecified part of neck of left femur, initial encounter for closed fracture Coding Level of Care Code Acute Maintenance Equipment Operator for [facility] Diagnoses Fracture of hip S72.002A Encounter type: initial encounter Fracture type: closed Laterality: left
[2022-03-10 14:38] VITALS: BP 183/96; RESP 18
[2022-03-10 14:50] VITALS: BMI 16.4
[2022-03-10] MEDS: morphine 4 mg/mL SDV 1 mL 2 MG IVP ×2 (15:10→22:13)
[2022-03-10] MEDS: heparin 5,000 unit/mL INJ 1 mL 5000 UNIT SUBCUT (15:13)
[2022-03-10 16:00] VITALS: BP 180/80; PULSE 85; RESP 16; TEMP 38.1; O2SAT 93
--- NOTE | 2022-03-10 17:26 | PC.NURSE ---
nurse was alerted
[2022-03-10 18:26] LABS: Add Urine Microscopic? YES; Bilirubin Urine Neg (Negative); Blood Urine Neg (Negative); Glucose Urine UA Norm (Normal); Ketones Urine Negative (Negative); Leukocyte Esterase Urine Negative (Negative); Nitrate Urine Negative (Negative); Protein Urine Neg (Negative); Sulfosalicylic Acid Urine Negative (Negative); Urine Appearance SL Hazy (CLEAR); Urine Color Yellow (Yellow); Urobilinogen Urine Norm (Negative); pH Urine 9 (5-7)
[2022-03-10 18:28] LABS: Bacteria Urine 2+ /hpf; Squamous Epithelial Cell Urine 0-4 /hpf (0-5)
[2022-03-10 18:29] LABS: Add Urine Culture? No; Mucus Urine TRACE /hpf
--- NOTE | 2022-03-10 18:41 | PC.NURSE ---
Urinary catheter placed by KELLY Araujo. Attempted by myself and China Rowe RN - 3 urinary catheter kits used.
[2022-03-10 19:46] VITALS: BP 151/79; PULSE 81; RESP 17; TEMP 37.2; O2SAT 90
[2022-03-10 22:13] VITALS: O2SAT 94
[2022-03-10 23:53] VITALS: BP 130/63; PULSE 79; RESP 17; TEMP 37.1; O2SAT 88
[2022-03-11] VITALS (22 sets, daily range): BP systolic 112–170; BP diastolic 67–101; PULSE 67–120; RESP 14–22; TEMP 36.3–37.3; O2SAT 88–99
[2022-03-11 03:21] LABS: Basophils # 0.1 10^3/uL (0.0-0.1); Basophils % 0.7 %; Eosinophils # 0.2 10^3/uL (0.0-0.8); Eosinophils % 2.1 %; Hematocrit 25.7 % (37.0-47.0); Hemoglobin 7.9 g/dL (11.5-15.3); Lymphocytes # 1.6 10^3/uL (0.8-4.8); Lymphocytes % 20.7 %; Mean Corpuscular HGB Conc 30.7 g/dL (30.0-36.0); Mean Corpuscular Hemoglobin 28.3 pg (28.0-34.0); Mean Corpuscular Volume 92.1 fl (81-99); Mean Platelet Volume 9.2 fL (7.4-10.4); Monocytes # 0.5 10^3/uL (0.2-0.9); Monocytes % 6.5 %; Neutrophils # 5.33 10^3/uL (1.8-7.7); Neutrophils % 69.7 %; Nucleated Red Blood Cells % 0 %; Platelet Count 315 10^3/cmm (130-400); Red Blood Count 2.79 10^6/uL (4.1-5.3); Red Cell Distribution Width 14.8 % (12.1-15.1); White Blood Count 7.6 10^3/uL (4.0-10.0)
[2022-03-11 03:54] LABS: Anion Gap 11.5 (5-19); Blood Urea Nitrogen 23 mg/dL (8-23); Calcium 8.6 mg/dL (8.5-10.5); Carbon Dioxide 28 mmol/L (22-29); Chloride 101 mmol/L (98-107); Glucose 94 mg/dL (65-115); Osmolality Calculated 285 mOsm/kg (285-295); Potassium 4.5 mmol/L (3.5-5.1); Sodium 136 mmol/L (136-145)
[2022-03-11] MEDS: morphine 4 mg/mL SDV 1 mL 2 MG IVP ×3 (04:45→21:02)
--- NOTE | 2022-03-11 07:25 | ANES.PREANE2 ---
Pre-Anesthetic Assessment Height/Weight: Height 1.57 m Weight 40.7 kg Temp Pulse Resp BP Pulse Ox 99.2 F 75 18 146/74 98 03/11/22 07:05 03/11/22 07:05 03/11/22 07:05 03/11/22 07:05 03/11/22 07:05 Preop Diagnosis: Displaced right femoral neck fracture Operation Date: 03/11/22 08:45 Proposed Procedures p Hemiarthroplasty Hip(Left) - Edu Kunz, Familial anesthetic complications: Hx from son , denies family hx or patient hx of anesthesia complications Was Beta Alex taken within 24 hours: N/A (Beta alex not administered, patient unable to give hx) Was Clonidine taken within 24 hours: N/A Last intake: Intake Last Liquid Date 03/10/22 Last Liquid Time 11:30 Last Solid Date 03/10/22 Last Solid Time 10:00 Social No alcohol and No tobacco Exam clear to auscultation bilaterally and regular rate & rhythm Airway Submandibular: within normal limits Cervical ROM: Other (Limited) Mallampati: Class II Dentition: chipped CV/HEM Anemia and Hypertension None reported Hepatic None reported GI None reported Metabolic None reported Musc/skel None reported Neuropsych Dementia Anesthetic Plan ASA status: 3 Anesthesia: Anesthesia Evaluation and General Other: Discussed anesthesia with patient's son. He consents over phone for anesthesia, witness Ethan (Pre op RN). Risk of > 500 ml blood loss (7ml/kg in children): No Medications/Allergies Home Medications Medication Instructions Recorded Confirmed Last Taken Type atenolol 50 mg tablet 50 mg PO DAILY 01/21/22 03/10/22 Unknown History donepezil 10 mg tablet 10 mg PO DAILY 01/21/22 03/10/22 Unknown History lisinopril 20 mg tablet 20 mg PO DAILY 01/21/22 03/10/22 Unknown History trazodone 50 mg tablet 50 mg PO DAILY 01/21/22 03/10/22 Unknown History hydrocodone 5 mg-acetaminophen 325 1 tab PO Q4H PRN #20 tab 01/24/22 03/10/22 Unknown Rx mg tablet magnesium hydroxide 400 mg/5 mL 30 ml PO BID PRN ml 03/01/22 03/10/22 Unknown History oral suspension (Dulcolax (magnesium hydroxide)) tamsulosin 0.4 mg capsule 0.4 mg PO DAILY 03/01/22 03/10/22 Unknown History bisacodyl 10 mg rectal suppository 10 mg AK DAILY PRN 03/10/22 03/10/22 Unknown History Allergies Allergy/AdvReac Type Severity Reaction Status Date / Time diphenhydramine Allergy ADR-Cramping Verified 03/01/22 13:23 [From Benadryl] of the Muscles gabapentin Allergy ADR-Halluci Verified 03/01/22 13:23 nating omeprazole Allergy ADR-Vomitin Verified 03/01/22 13:23 g Penicillins Allergy ADR-Cramping Verified 03/01/22 13:23 of the Muscles tetanus and diphtheria Allergy ALGY-Hives Verified 03/01/22 13:23 toxoids Tetracyclines Allergy ADR-Cramping Verified 03/01/22 13:23 of the Muscles Current Medications Generic Name Dose Route Start Last Admin Trade Name Freq PRN Reason Stop Dose Admin Morphine Sulfate 2 mg 03/10/22 12:45 03/11/22 04:45 Morphine 4 Mg/Ml Sdv 1 Ml IVP 2 mg Q4H PRN Administration SEVERE PAIN PFSH Anesthesia Medical History Anemia Dementia HTN (hypertension) Urinary retention Surgical History History of right hip hemiarthroplasty Social History Smoking and tobacco status: former smoker Alcohol intake: never Marital status: / Current occupational status: disabled History of recent travel: No Data Anesthesia : 03/11/22 03:00 03/11/22 03:00 Short CBC 03/10/22 03/11/22 Range/Units 11:54 03:00 WBC 10.3 H 7.6 (4.0-10.0) 10^3/uL Hgb 9.0 L 7.9 L (11.5-15.3) g/dL Hct 29.5 L 25.7 L (37.0-47.0) % MCV 94.6 92.1 (81-99) fl Plt Count 328 315 (130-400) 10^3/cmm Neut % (Auto) 83.2 69.7 % Neut # (Auto) 8.53 H 5.33 (1.8-7.7) 10^3/uL BMP 03/10/22 03/11/22 11:54 03:00 Sodium 141 136 Potassium 4.4 4.5 Chloride 103 101 Carbon Dioxide 29 28 BUN 21 23 Creatinine 1.0 H 1.1 H Glucose 104 94 Calcium 9.2 8.6 Liver Function 03/10/22 Range/Units 11:54 Total Bilirubin 0.2 (0.15-1.2) mg/dL AST 24 (0-32) U/L ALT 12 (0-33) U/L Alkaline Phosphatase 90 (35-105) IU/L Albumin 3.4 L (3.5-5.2) g/dL Urine 03/10/22 Range/Units 17:15 Urine Color Yellow (Yellow) Urine Appearance Sl hazy (CLEAR) Urine pH 9 H (5-7) Ur Specific [place] 1.020 (1.005-1.030) Urine Protein Neg (Negative) Urine Glucose (UA) Norm (Normal) Urine Ketones Negative (Negative) Urine Nitrate Negative (Negative) Urine Bilirubin Neg (Negative) Ur Leukocyte Esterase Negative (Negative) Urine RBC None (0-2) /hpf Urine WBC 5-10 H (0-5) /hpf Cardiac Studies: Echocardiogram 01/21/22
[2022-03-11] MEDS: sodium chloride 0.9% 1,000 ML 30 ML IV (07:50)
[2022-03-11] MEDS: clindamycin 900 MG/50 ML PREMIX 100 MG IV (07:52)
--- NOTE | 2022-03-11 07:57 | W.PM.OPSUD ---
Surgery/Procedure H&P Update DATE OF PROCEDURE: March 11, 2022 DATE H&P PERFORMED: 03/10/22 H&P UPDATE INFORMATION: I have reviewed H&P completed within last 30 days, I have examined patient prior to procedure and No changes to prior documentation PREOP DIAGNOSIS: Displaced right femoral neck fracture PLANNED PROCEDURE: Operation Date: 03/11/22 08:45 Proposed Procedures p Hemiarthroplasty Hip(Left) - Edu Kunz DO
--- NOTE | 2022-03-11 08:41 | P.OP_ITS ---
Operative Report Date of procedure: March 11, 2022 Pre-op diagnosis: Preop Diagnosis Displaced right femoral neck fracture Post-op diagnosis: same Procedure done: left hip arpan arthroplasty Surgeon: Edu Kunz Wire Photo Operator News: Conner Song Wire Photo Operator News: The surgical aide, Conner Song, LEXI was needed for his expertise with hip fractures. He was important and necessary throughout the procedure to complete in a safe and timely manner. He assisted with patient positioning prepping and draping tissue retraction suctioning of the operative field protection of the critical structures and tissue closure Procedure: Left hip hemiarthroplasty Patient was brought to the operative suite after undergoing anesthesia was placed in the lateral decubitus position with the left side up. Patient was then prepped and draped in the normal fashion. All areas impingement were well- padded. Skin incision made over the left lateral hip. IT band was split modified Rosenthal approach was used the abductors and capsule taken down anteriorly the fracture was identified a saw was used to cut the femoral neck approximately fingerbreadth above the lesser trochanter. The femoral head was then dislocated. Femoral head was measured to be 45. The attention was then brought to the femur. The hot box operator was used followed by the canal finder followed by the lateralizer. The ports were used up to a size 3. A size 3 stem was used with a -4 neck length and a 45 mm head. The head was placed onto the stem after was inserted into the femur. The hip was reduced felt to be stable in all positions good leg lengths. Wounds irrigated and closed in layered fashion the abductors and capsule repaired with FiberWire. The IT band was closed with 0 Vicryl skin was closed with 2-0 Vicryl and selena. Sterile dressings were applied and patient was transferred to the PACU in stable condition.
[2022-03-11] MEDS: vancomycin 1,000 MG SDV 1000 MG XX (08:51)
[2022-03-11] MEDS: fentaNYL 50 mcg/mL INJ 2mL IVP (09:32)
--- NOTE | 2022-03-11 10:08 | P.PN_ITS ---
Subjective Subjective: He is status post repair of left hip fracture doing well postoperatively. Denies pain or discomfort. Vitals/I&O/Wt Last Vital Signs Temp 98.0 F 03/11/22 09:57 Pulse 120 H 03/11/22 09:57 Resp 22 H 03/11/22 09:57 BP 151/83 03/11/22 09:57 Pulse Ox 88 L 03/11/22 09:57 03/10/22 03/11/22 03/11/22 22:59 06:59 14:59 Intake Total 240 / 240 950 / 950 Output Total 450 / 450 400 / 400 Balance 240 / 240 -450 / -210 550 / 550 Weight last 48 hrs Weight 40.7 kg Weight 68.039 kg Physical Exam Const: COMMON NORMALS: alert; negative for patient oriented x3 GENERAL APPEARANCE: cooperative and anxious ORIENTATION/CONSCIOUSNESS: Yes awake OTHER: Pleasantly confused HENMT: COMMON NORMALS: normocephalic, EAC's normal, Normal external nose present and moist oral mucous membranes HEAD & SCALP: normocephalic NOSE: Normal external nose present EXTERNAL AUDITORY CANAL: EAC's normal Neck/C-Spine: COMMON NORMALS: no meningeal signs Chest: CHEST: Yes Symmetrical chest wall rise Resp: COMMON NORMALS: clear to auscultation bilaterally AUSCULTATION: clear to auscultation bilaterally Cardio: COMMON NORMALS: regular rate, regular rhythm and No murmurs present (Cardio) RATE: regular rate RHYTHM: regular rhythm GI: COMMON NORMALS: Normal to inspection, nondistended, normoactive bowel sounds present, Soft to palpation and non-tender PALPATION: Yes Soft to palpation Extremity: COMMON NORMALS: no pedal edema OTHER: Dressing, cold pack on wound L thigh, no bleeding. Neuro: COMMON NORMALS: moves all extremities; negative for patient oriented x3 SENSORIUM/ORIENTATION: Yes alert MENINGEAL SIGNS: Yes no meningeal signs Skin: COMMON NORMALS: no wounds RASHES: no rashes Urinary Catheter Management: Payne: Cath Placed During This Visit: yes Reason for Continuing Indwelling Catheter: Required Immobilization for Trauma or Surgery or Anesthesia Urinary Catheter Date of Insertion: 03/10/22 Urinary Catheter Time of Insertion: 17:00 Data : 03/11/22 03:00 03/11/22 03:00 A&P Assessment and plan (1) Fracture of hip: S/p left hip hemiarthroplasty today. Lackamp surgery. Denies any complaints. We will follow-up hemoglobin later tonight and tomorrow. Pain control. Monitor postoperatively. Payne catheter in place for now, had difficulties with removal of Payne last hospitalization after repair of right hip. Once able, consider voiding trial, would assess PVR. Left hip fracture after fall after climbing out of bed. Maintain fall precautions. Elevated risk of delirium given underlying dementia, and he reports that she did have confusion after last surgery. PT assessment. Status: Acute Qualifiers: Encounter type: initial encounter Fracture type: closed Laterality: left Qualified Code(s): S72.002A - Fracture of unspecified part of neck of left femur, initial encounter for closed fracture (2) Anemia: Hemoglobin 9. Nursing reports recently sent out 3 Hemoccult test. Status: Acute (3) Urinary retention: Urinary retention following last hospitalization, Payne catheter discontinued 2 weeks ago, subsequently a week of straight catheterizations twice daily with reported minimal residuals, these were stopped. Has been urinating since then. UA w only 5-10 wbc. Denies urinary symptoms. Status: Resolved (4) Dementia: Assistance with transfers, transfers into wheelchair. Needs assistance with feeding. Eats soft diet. Status: Acute Plan HTN: Hold lisinopril preoperatively. Medications need to be confirmed. Attestations Medical Necessity Statement*: Continue postoperative care after left hip fracture and repair with hemiarthroplasty, acute on chronic anemia, history of urinary retention after prior right hip repair. 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
[2022-03-11] MEDS: donepezil 5 MG Tablet 10 MG PO (10:58)
[2022-03-11] MEDS: tamsulosin 0.4 mg Capsule PO (10:58)
--- NOTE | 2022-03-11 11:08 | PC.NURSE ---
pt refuses oxygen, keeps pulling off
--- NOTE | 2022-03-11 12:29 | PC.OT ---
OT order received. Pt sleeping when attempted to eval x2. Per RN student, pt having difficulty complying with nurses (taking vitals) d/t significant confusion. Will attempt OT eval tomorrow.
[2022-03-11 15:55] LABS: Hemoglobin 8.1 g/dL (11.5-15.3)
[2022-03-11] MEDS: trazodone 50 mg Tablet 25 MG PO (21:02)
[2022-03-12] VITALS (8 sets, daily range): BP systolic 120–172; BP diastolic 64–78; PULSE 79–86; RESP 17–18; TEMP 36.4–37.9; O2SAT 89–95
[2022-03-12 04:00] LABS: Basophils % 0.2 %; Eosinophils # 0.1 10^3/uL (0.0-0.8); Eosinophils % 0.9 %; Hematocrit 27.1 % (37.0-47.0); Hemoglobin 8.5 g/dL (11.5-15.3); Lymphocytes # 1.4 10^3/uL (0.8-4.8); Lymphocytes % 13.3 %; Mean Corpuscular HGB Conc 31.4 g/dL (30.0-36.0); Mean Corpuscular Hemoglobin 28.6 pg (28.0-34.0); Mean Corpuscular Volume 91.2 fl (81-99); Mean Platelet Volume 9.4 fL (7.4-10.4); Monocytes # 0.7 10^3/uL (0.2-0.9); Neutrophils # 7.95 10^3/uL (1.8-7.7); Neutrophils % 78.1 %; Nucleated Red Blood Cells % 0 %; Platelet Count 307 10^3/cmm (130-400); Red Blood Count 2.97 10^6/uL (4.1-5.3); Red Cell Distribution Width 14.9 % (12.1-15.1); White Blood Count 10.2 10^3/uL (4.0-10.0)
[2022-03-12 04:21] LABS: Anion Gap 14.1 (5-19); Blood Urea Nitrogen 28 mg/dL (8-23); Calcium 8.8 mg/dL (8.5-10.5); Carbon Dioxide 25 mmol/L (22-29); Chloride 100 mmol/L (98-107); Glucose 121 mg/dL (65-115); Osmolality Calculated 287 mOsm/kg (285-295); Potassium 4.1 mmol/L (3.5-5.1); Sodium 135 mmol/L (136-145)
[2022-03-12] MEDS: morphine 4 mg/mL SDV 1 mL 2 MG IVP (07:19)
--- NOTE | 2022-03-12 07:31 | ANE.PACU2 ---
Inpatient post-anesthesia follow up: Airway intact: Yes Vital signs: Temperature 99.3 F Pulse Rate 80 Respiratory Rate 18 Blood Pressure 157/74 Pulse Oximetry 90 Oxygen Delivery Me thod Room Air Oxygen Flow Rate 2 Fraction of Inspir ed Oxygen Hydration adequate: Yes Nausea and vomiting: No Pain level: 8 Mental status: Baseline Additional Comments: Pain poorly controlled this morning, receiving multi modal analgesia
--- NOTE | 2022-03-12 07:33 | P.PN_ITS ---
Subjective Subjective: POD 1 Patient is confused associated with her dementia. No apparent distress. Vitals/I&O/Wt Last Vital Signs Temp 99.3 F 03/12/22 07:23 Pulse 80 03/12/22 07:23 Resp 18 03/12/22 07:23 BP 157/74 03/12/22 07:23 Pulse Ox 90 03/12/22 07:23 03/11/22 03/12/22 03/12/22 22:59 06:59 14:59 Intake Total 290 / 1480 50 / 1530 Output Total 700 / 1100 225 / 1325 Balance -410 / 380 -175 / 205 Weight last 48 hrs Weight 89 lb 11.65 oz Weight 150 lb Physical Exam Narrative: Patient is confused appears in no apparent distress. Left Hip incision is clean and dry. Good motor strength throughout both lower extremities. Fires in all motor groups. Skin is clear warm, feet are warm with good cap refill in all digits. Normal sensation to light touch. Calves are supple, no medial thigh tenderness, negative Homans' sign. No palpable edema peripherally. Urinary Catheter Management: Payne: Cath Placed During This Visit: yes Reason for Continuing Indwelling Catheter: Acute Urinary Retention or Obstructi on Urinary Catheter Date of Insertion: 03/10/22 Urinary Catheter Time of Insertion: 17:00 Data : 03/12/22 03:25 03/12/22 03:25 A&P Assessment and plan (1) Status post hip hemiarthroplasty: medical staff services coordinator for placement. Staple removal at the nursing care facility in 2 weeks time. We will see her back in the office in 4 weeks time for radiographs of the left hip. Status: Acute (2) Acute blood loss anemia: Status: Acute Attestations Medical Necessity Statement*: Defer to medical team Coding Level of Care Code Acute [employer] for Andrew Arevalo Diagnoses Status post hip hemiarthroplasty Z96.649 Acute blood loss anemia D62
[2022-03-12] MEDS: donepezil 5 MG Tablet 10 MG PO (08:42)
[2022-03-12] MEDS: tamsulosin 0.4 mg Capsule PO (08:42)
[2022-03-12] MEDS: acetaminophen 325 mg Tablet 650 MG PO (12:49)
--- NOTE | 2022-03-12 15:17 | PM.PN ---
Subjective Subjective: 76-year-old female with recent right hip fracture ORIF for 07/2022 has severe dementia. She was at [facility] and got out of bed on her own and fell sustaining left hip fracture. Patient underwent left hip ORIF on 03/11/[address] Edu Kunz. Patient had trouble with urinary retention last visit and was started on Flomax which study showed does help women with their urinary retention as well. The patient is quite demented and confused. Will require return to the long term facility [facility] Vitals/I&O/Wt Last Vital Signs Temp 99.3 F 03/12/22 07:23 Pulse 86 03/12/22 12:06 Resp 18 03/12/22 12:06 BP 152/70 03/12/22 12:06 Pulse Ox 89 L 03/12/22 12:06 03/12/22 03/12/22 03/12/22 06:59 14:59 22:59 Intake Total 50 / 1530 170 / 170 Output Total 225 / 1325 Balance -175 / 205 170 / 170 Physical Exam Narrative: General well-developed thin female appears her stated age. She is talkative and pleasant but disoriented to place date and situation. She thought she was at her own home. She did not know her age. She says she her name is Sheba but knows her last name is Maury I do believe her middle name is Arianna and so she goes by Sheba. CV regular rate and rhythm Lungs clear to auscultation Abdomen positive bowel sounds soft Calves no edema Hips right hip incision well-healed and nontender. Left hip incision is in a dressing and iced. Urinary Catheter Management: Payne: Cath Placed During This Visit: yes Reason for Continuing Indwelling Catheter: Acute Urinary Retention or Obstruction Urinary Catheter Date of Insertion: 03/10/22 Urinary Catheter Time of Insertion: 17:00 Data : 03/12/22 03:25 03/12/22 03:25 A&P Assessment and plan (1) Acute blood loss anemia: Patient's hematocrit was 25 now 27. Will start iron replacement. Status: Acute (2) Urinary retention: Payne to remain in place continue Flomax. Will need to scan for urinary retention once the Payne is removed again Status: Resolved (3) Dementia: Severe but stable Status: Acute Attestations Medical Necessity Statement*: We will check CBC in the morning. If hematocrit stable she can be discharged to long term facility for further rehab and monitoring for dementia and urinary retention Coding Level of Care Code Acute Pie Baker for Andrew Arevalo Diagnoses Acute blood loss anemia D62 Urinary retention R33.9 Dementia F03.90
[2022-03-12] MEDS: trazodone 50 mg Tablet 25 MG PO (21:12)
--- NOTE | 2022-03-12 21:30 | PC.NURSE ---
This nurse attempted to administer pts 2100 meds. Pt very aggressive refusing medication. Pt swinging at nurse with fist. Pt yelling at nurse and refusing medications. This nurse attempted to verbally redirected pt and after much discussion and redirection pt took po medication. Pt continues to be verbally aggressive. Resp even and non-labored no distress or sob noted. Pt had no c/o pain or discomfort. Call light in reach. Sitter at bedside.
[2022-03-13 04:00] VITALS: BP 149/70; PULSE 77; RESP 18; TEMP 37.3; O2SAT 93
[2022-03-13 06:06] LABS: Basophils % 0.2 %; Eosinophils % 0.4 %; Hematocrit 24.1 % (37.0-47.0); Hemoglobin 7.6 g/dL (11.5-15.3); Lymphocytes # 1.7 10^3/uL (0.8-4.8); Lymphocytes % 15.4 %; Mean Corpuscular HGB Conc 31.5 g/dL (30.0-36.0); Mean Corpuscular Hemoglobin 28.5 pg (28.0-34.0); Mean Corpuscular Volume 90.3 fl (81-99); Mean Platelet Volume 9.6 fL (7.4-10.4); Monocytes # 0.8 10^3/uL (0.2-0.9); Monocytes % 7.2 %; Neutrophils # 8.34 10^3/uL (1.8-7.7); Neutrophils % 76.2 %; Nucleated Red Blood Cells % 0 %; Platelet Count 267 10^3/cmm (130-400); Red Blood Count 2.67 10^6/uL (4.1-5.3); Red Cell Distribution Width 14.9 % (12.1-15.1); White Blood Count 10.9 10^3/uL (4.0-10.0)
[2022-03-13 06:36] LABS: Anion Gap 15.1 (5-19); Blood Urea Nitrogen 31 mg/dL (8-23); Calcium 8.3 mg/dL (8.5-10.5); Carbon Dioxide 23 mmol/L (22-29); Chloride 105 mmol/L (98-107); Glucose 107 mg/dL (65-115); Osmolality Calculated 295 mOsm/kg (285-295); Potassium 4.1 mmol/L (3.5-5.1); Sodium 139 mmol/L (136-145)
[2022-03-13 07:27] VITALS: BP 129/61; PULSE 73; RESP 18; TEMP 37.2; O2SAT 91
--- NOTE | 2022-03-13 07:33 | PC.NURSE ---
received bedside report, assumed care of patient. sitter at bedside, no needs identified at this time.
--- NOTE | 2022-03-13 09:41 | PM.PN ---
Subjective Subjective: 76-year-old female with dementia has had right hip fracture last month followed by left hip fracture this month both repaired by Dr. Kunz. She is doing well anatomically but given her severe dementia she has not been a good candidate for therapy and is not safe to be up on her own and therefore has a sitter in the room. She is talkative and cooperative but her speech does not make sense. Vitals/I&O/Wt Last Vital Signs Temp 99.0 F 03/13/22 07:27 Pulse 73 03/13/22 07:27 Resp 18 03/13/22 07:27 BP 129/61 03/13/22 07:27 Pulse Ox 91 03/13/22 07:27 03/12/22 03/13/22 03/13/22 22:59 06:59 14:59 Intake Total 265 / 435 Output Total 500 / 500 Balance 265 / 435 -500 / -65 Physical Exam Narrative: . General well-developed thin cachectic female in no acute cardiopulmonary distress she has not eaten her breakfast. She declines to eat at this time. CV regular rate and rhythm Lungs clear Abdomen soft Calves no tenderness pre tibial edema left hip with ice in place and not particularly tender Urinary Catheter Management: Payne: Cath Placed During This Visit: yes Reason for Continuing Indwelling Catheter: Other Urinary Catheter Date of Insertion: 03/10/22 Urinary Catheter Time of Insertion: 17:00 Data : 03/13/22 05:28 03/13/22 05:28 A&P Assessment and plan (1) Acute blood loss anemia: Hematocrit 27 yesterday 24 today. I do not think the patient is acutely bleeding however she is not eating much. We will add iron study to her blood and if low give iron sucrose IV while she is in the hospital Status: Acute (2) Urinary retention: Patient had Payne removed at the [place] [facility] but as she has fallen and had left hip now repaired Payne has been replaced and will removed today and do postvoid residual bladder scan Status: Chronic (3) Dementia: Chronic and severe. Patient with behavioral agitation but not violent. She is impulsive but limited in getting up from hip pain at this time. Start Seroquel 25 mg nightly first dose now Status: Acute (4) Fracture of hip: Repaired 03/11/[address] Kunz Status: Acute Qualifiers: Encounter type: initial encounter Fracture type: closed Laterality: left Qualified Code(s): S72.002A - Fracture of unspecified part of neck of left femur, initial encounter for closed fracture (5) UTI (urinary tract infection): Urine was no growth on 03/10/2022. Urine grew Pseudomonas on 01/22/2022 but was treated Status: Acute Attestations Medical Necessity Statement*: Waiting okay for discharge from orthopedics and physical therapy so she can return to [facility] Time Spent in Patient Care: 16 - 35 minutes Coding Level of Care Code Acute Bank Appraiser for [facility] Fwd Diagnoses Acute blood loss anemia D62 Urinary retention R33.9 Dementia F03.90 Fracture of hip S72.002A Encounter type: initial encounter Fracture type: closed Laterality: left UTI (urinary tract infection) N39.0
[2022-03-13] MEDS: tamsulosin 0.4 mg Capsule PO (09:56)
[2022-03-13] MEDS: donepezil 5 MG Tablet 10 MG PO (09:56)
[2022-03-13] MEDS: quetiapine 25 mg Tablet PO (09:56)
[2022-03-13] MEDS: acetaminophen 325 mg Tablet 650 MG PO (10:01)
--- NOTE | 2022-03-13 11:52 | PM.DCS ---
Discharge Providers Date of Admission: 03/10/22 12:45 Date of Discharge: March 13, 2022 Attending Provider at Admission: Pacheco Robert Attending Provider at Discharge: Aj Gamble MD Consults: Dr. Edu Kunz Primary Care Provider: Sahara Almeida MD Diagnoses at Discharge Discharge Diagnosis (1) Acute blood loss anemia: Details from hospital stay: Patient has actually more of a chronic anemia she is thin and with her dementia does not eat much. I have ordered iron studies. Please follow those up and replace if appropriate Status: Acute (2) Urinary retention: Details from hospital stay: Patient had urine retention following her last hip fracture and was bladder trained. She saw the urologist and Diallo was eventually removed but replaced for this hospitalization. Patient is still quite painful and is poorly compliant with therapy due to her dementia. Anticipate that she will need bladder training and Diallo removed again. Continue Flomax Status: Chronic (3) Dementia: Details from hospital stay: Patient was repetitive and anxious in the morning. I gave her Seroquel first dose this morning and 1 dose at night starting tomorrow. Hopefully this will also help her to eat more. Status: Acute (4) Fracture of hip: Details from hospital stay: Operative repair on 03/11/2022 Status: Acute Qualifiers: Encounter type: initial encounter Fracture type: closed Laterality: left Qualified Code(s): S72.002A - Fracture of unspecified part of neck of left femur, initial encounter for closed fracture (5) UTI (urinary tract infection): Details from hospital stay: Resolved no growth this admission. Previous admission has had Pseudomonas Status: Acute Reason for Visit Reason for Visit: LEFT HIP FX S/P FALL Brief History: Patient is demented and though monitored at the intermediate was able to elude assistance and fell and broke her left hip Hospital Course Hospital Course 76-year-old female with dementia had right hip fracture last month repaired and came in with left hip fracture this month also repaired by Dr. Kunz. She has been limited in her ability to do therapy due to severe dementia. She has at times pressured speech but does not make sense. She is disoriented to place date time but does know her name and prefers to be called Sheba. Patient does not eat well and iron studies are pending due to anemia. Lisinopril continued atenolol was decreased to half dose at 25 mg daily from her 50 mg daily admission dose. Please note Seroquel is added. Physical Exam Narrative: General well-developed thin female in no acute cardiopulmonary distress next line she is alert and talkative but does not make sense. She knows her name but not place or date. CV regular rate and rhythm Lungs clear to auscultation bilaterally Abdomen positive bowel sounds soft nontender Calves no pretibial edema Right hip incision well-healed no erythema Left hip incision closed and underneath the dressing no concerns regarding discharge erythema or unusual tenderness at this time Urinary Catheter Management: Diallo: Cath Placed During This Visit: yes Reason for Continuing Indwelling Catheter: Other Urinary Catheter Date of Insertion: 03/10/22 Urinary Catheter Time of Insertion: 17:00 Discharge Data Studies Completed and Pending Completed Studies During Hospitalization Category Date Time Status XR chest 1V portable [id number] Urgent Exams 03/10/22 11:27 Completed XR hip LT 2-3V wo/w pel* [id number] Urgent Exams 03/10/22 11:26 Completed Pending at discharge Category Date Time Status Total Iron Binding Capacity Routine Lab 03/13/22 05:28 Received Radiology Impressions Hip/Pelvis X-Ray 03/10/22 11:26 IMPRESSION: Ill-defined fracture through the left femoral neck. Chest X-Ray 03/10/22 11:27 IMPRESSION: No acute findings. Laboratory Results WBC 10.9 10^3/uL (4.0-10.0) H 03/13/22 05:28 RBC 2.67 10^6/uL (4.1-5.3) L 03/13/22 05:28 Hgb 7.6 g/dL (11.5-15.3) L 03/13/22 05:28 Hct 24.1 % (37.0-47.0) L 03/13/22 05:28 MCV 90.3 fl (81-99) 03/13/22 05:28 MCH 28.5 pg (28.0-34.0) 03/13/22 05:28 MCHC 31.5 g/dL (30.0-36.0) 03/13/22 05:28 RDW 14.9 % (12.1-15.1) 03/13/22 05:28 Plt Count 267 10^3/cmm (130-400) 03/13/22 05:28 MPV 9.6 fL (7.4-10.4) 03/13/22 05:28 Neut % (Auto) 76.2 % 03/13/22 05:28 Lymph % (Auto) 15.4 % 03/13/22 05:28 [place] % (Auto) 7.2 % 03/13/22 05:28 Eos % (Auto) 0.4 % 03/13/22 05:28 Baso % (Auto) 0.2 % 03/13/22 05:28 Neut # (Auto) 8.34 10^3/uL (1.8-7.7) H 03/13/22 05:28 Lymph # (Auto) 1.7 10^3/uL (0.8-4.8) 03/13/22 05:28 [place] # (Auto) 0.8 10^3/uL (0.2-0.9) 03/13/22 05:28 Eos # (Auto) 0.0 10^3/uL (0.0-0.8) 03/13/22 05:28 Baso # (Auto) 0.0 10^3/uL (0.0-0.1) 03/13/22 05:28 Nucleated RBC % (auto) 0 % 03/13/22 05:28 Nucleated RBCs # 0.0 /100WBC 03/13/22 05:28 Sodium 139 mmol/L (136-145) 03/13/22 05:28 Potassium 4.1 mmol/L (3.5-5.1) 03/13/22 05:28 Chloride 105 mmol/L (98-107) 03/13/22 05:28 Carbon Dioxide 23 mmol/L (22-29) 03/13/22 05:28 Anion Gap 15.1 (5-19) 03/13/22 05:28 BUN 31 mg/dL (8-23) H 03/13/22 05:28 Creatinine 0.9 mg/dL (0.5-0.9) 03/13/22 05:28 GFR Calculation Not Reportable 03/13/22 05:28 Glucose 107 mg/dL (65-115) 03/13/22 05:28 Calculated Osmolality 295 mOsm/kg (285-295) 03/13/22 05:28 Calcium 8.3 mg/dL (8.5-10.5) L 03/13/22 05: Total Bilirubin 0.2 mg/dL (0.15-1.2) 03/10/22 11:54 AST 24 U/L (0-32) 03/10/22 11:54 ALT 12 U/L (0-33) 03/10/22 11:54 Alkaline Phosphatase 90 IU/L (35-105) 03/10/22 11:54 Total Protein 6.7 g/dL (6.6-8.7) 03/10/22 11:54 Albumin 3.4 g/dL (3.5-5.2) L 03/10/22 11:54 Globulin 3.3 g/dL (1.3-4.6) 03/10/22 11:54 TSH 2.10 uIU/mL (0.27-4.20) 03/11/22 03:00 Urine Color Yellow (Yellow) 03/10/22 17:15 Urine Appearance Sl hazy (CLEAR) 03/10/22 17:15 Urine pH 9 (5-7) H 03/10/22 17:15 Ur Specific [place] 1.020 (1.005-1.030) 03/10/22 17:15 Urine Protein Neg (Negative) 03/10/22 17:15 Urine Glucose (UA) Norm (Normal) 03/10/22 17:15 Urine Ketones Negative (Negative) 03/10/22 17:15 Urine Blood Neg (Negative) 03/10/22 17:15 Urine Nitrate Negative (Negative) 03/10/22 17:15 Urine Bilirubin Neg (Negative) 03/10/22 17:15 Prot Sulfosalicylic Acd Negative (Negative) 03/10/22 17:15 Urine Urobilinogen Norm mg/dL (Negative) 03/10/22 17:15 Ur Leukocyte Esterase Negative (Negative) 03/10/22 17:15 Urine RBC None /hpf (0-2) 03/10/22 17:15 Urine WBC 5-10 /hpf (0-5) H 03/10/22 17:15 Ur Squamous Epith Cells 0-4 /hpf (0-5) H 03/10/22 17:15 Amorphous Sediment Not Reportable 03/10/22 17:15 Urine Bacteria 2+ /hpf (NONE) H 03/10/22 17:15 Urine Mucus Trace /hpf 03/10/22 17:15 Vitals Last Vital Signs Temp 99.0 F 03/13/22 07:27 Pulse 73 03/13/22 07:27 Resp 18 03/13/22 07:27 BP 129/61 03/13/22 07:27 Pulse Ox 91 03/13/22 07:27 Discharge Plan Discharge Patient Disposition: Xfer SNF Condition: Stable Prescriptions: New acetaminophen 325 mg Tablet 650 mg PO Q6H PRN (Reason: Mild/Mod Pain Or Temp >/= 101) Qty: 60 0RF quetiapine 25 mg Tablet 25 mg PO BEDTIME Qty: 30 0RF trazodone 50 mg Tablet 25 mg PO BEDTIME Qty: 30 0RF atenolol 25 mg tablet 25 mg PO DAILY Qty: 30 0RF Continued tamsulosin 0.4 mg capsule 0.4 mg PO DAILY 0RF magnesium hydroxide [Dulcolax (magnesium hydroxide)] 400 mg/5 mL suspension 30 ml PO BID PRN (Reason: Constipation) 0RF donepezil 10 mg tablet 10 mg PO DAILY 0RF lisinopril 20 mg tablet 20 mg PO DAILY 0RF hydrocodone-acetaminophen 5-325 mg Tablet 1 tab PO Q4H PRN (Reason: Moderate To Severe Pain) Qty: 20 0RF bisacodyl 10 mg Suppository 10 mg IA DAILY PRN (Reason: Constipation) 0RF Discontinued trazodone 50 mg tablet 50 mg PO DAILY 0RF atenolol 50 mg tablet 50 mg PO DAILY 0RF Discharge Orders: Discharge Order (Routine); Ordered 03/13/22 Ordered By: Aj Gamble Referrals: [facility] [Outside] Sahara Almeida MD [Primary Care Provider] - 4-7 days (Dr. Almeida will see you at [facility].) Discharge Diet: Usual diet Discharge Activity: Resume usual activity Activity Restrictions/Additional Instructions: You are being discharged from the hospital today during which time you have been under the care of Dr Kunz. You had a Left hip fracture. You were treated for this injury with a Jer Arthroplasty which is a partial hip replacement. You may resume you normal diet (including any special diets as directed by your primary doctor) as well as your home medications. You should follow up with you primary doctor if you have any questions regarding medication you took prior to your stay in the hospital. You may take your pain medication as prescribed. After the first few days, take your pain medication as needed. Do not drive or drink alcohol while taking your pain medication. Your injury may increase your risk of developing a blood clot,or DVT, in your arm or leg. This could potentially dislodge and travel to your lungs and become a life threatening condition called apulmonary embolus,or PE. You have been prescribed eliquis to be taken to prevent this. Frequent movement of the legs will also help prevent this from occurring. If you develop any new or worsening cough, chestpain, bloody sputum or shortness of breath, call 911 or go to the EmergencyRoom. Always keep your surgical incision/dressing clean and dry. If you experience increasing pain at your incision site, redness, swelling, increasing discharge, foul odors, or fevers (greater than 100.4), night sweats or chills you should call the office at the above number. If you feel this is an emergency you should be evaluated in the Emergency Department of a nearby hospital. Orthopedic Patient Instructions Summary: Weight Bearing: WBAT Activity: as tolerated. Diet: regular. Wound Care: Keep dressing clean and dry. Change as needed, selena to be removed at the nursing facility in 2 weeks from surgery. Anticoagulation: Lovenox Pain Medication: Take only as needed. Ice, rest and elevation will be of great benefit. Please plan to follow-up [facility] Dr Kunz in 4 weeks. You will need to call the clinic [phone] to schedule. Do not hesitate to call the office with any questions or concerns. leave diallo in at discharge bladder train at SNF order cbc and bmp in 4 days please follow up iron studies. Patient cachectic and doesnt eat Discharge Attestations Time Spent in Discharge Care*: greater than 30 min Quality Metrics Clinical Quality Measures [ No reported AMI, CVA or VTE this stay] Coding Level of Care Code Acute [facility] note Diagnoses Acute blood loss anemia D62 Urinary retention R33.9 Dementia F03.90 Fracture of hip S72.002A Encounter type: initial encounter Fracture type: closed Laterality: left UTI (urinary tract infection) N39.0
[2022-03-13 12:00] VITALS: BP 105/57; PULSE 60; RESP 18; O2SAT 92
[2022-03-13 12:55] LABS: Iron 13 ug/dL (37-145); Percent Saturation 8.1 % (20-50); Total Iron Binding Capacity 160 mcg/dl; Unsaturated Iron Binding 147 ug/dL (112-347)
--- NOTE | 2022-03-13 13:46 | PC.SOCIAL ---
IMM Updated Updated pt's son, Marcus on IMM. No questions voiced. Provided pt a copy. Initialed, dated, & timed copy in chart.
--- NOTE | 2022-03-13 14:32 | PC.NURSE ---
ambulance here to transport pt to [facility]. dc'd pts piv, diallo in place due to urine retention. report attempted to call, no answer, message left. they called back approx 20 min later, report given, reviewed pts care during stay and discharge instructions. no further questions from brandon santacruz. packet sent with patient. clothing sent as well.
== END 2022-03-13 14:10 | disposition skilled nursing facility (03) | DRG 522 ==
LOC: ER 12:45 → MEDSURG 13:16
PROVIDERS: Orthopaedic Surgery; Admitting Provider Internal Medicine; Emergency Provider Student in an Organized Health Care Education/Training Program; PCP Family Medicine; Visit Provider Internal Medicine
PROC: 0SRS0JZ Replacement of Left Hip Joint, Femoral Surface with Synthetic Substitute, Open Approach (ICD-10-PCS; CPT 27125; principal; 2022-03-11 08:00)
DX: S72.002A Fracture of unspecified part of neck of left femur, initial encounter for closed fracture (principal); W18.30XA Fall on same level, unspecified, initial encounter; Y93.9 Activity, unspecified; Y92.129 Unspecified place in nursing home as the place of occurrence of the external cause; F03.90 Unspecified dementia, unspecified severity, without behavioral disturbance, psychotic disturbance, mood disturbance, and anxiety; I10 Essential (primary) hypertension; Z96.641 Presence of right artificial hip joint; Z87.891 Personal history of nicotine dependence; R33.9 Retention of urine, unspecified; Z79.891 Long term (current) use of opiate analgesic; D64.9 Anemia, unspecified
CPT/HCPCS: 36415; 51702; 71045; 73502; 80048; 80053; 81001; 83540; 83550; 84443; 85018; 85025; 96361; 96372; 96374; 97161; 97165; 99285; C1713; C1776; J1100; J1644; J2270; J2704; J3010; J3370; J3490; J7030

== ENCOUNTER 2022-03-15 10:23 | Outpatient (CLI) | payer MEDICARE, OTHER, SELFPAY ==
[2022-03-15 10:35] LABS: Basophils % 0.4 %; Eosinophils # 0.1 10^3/uL (0.0-0.8); Eosinophils % 1.3 %; Hematocrit 23.6 % (37.0-47.0); Hemoglobin 7.1 g/dL (11.5-15.3); Lymphocytes # 1.5 10^3/uL (0.8-4.8); Mean Corpuscular HGB Conc 30.1 g/dL (30.0-36.0); Mean Corpuscular Hemoglobin 28.7 pg (28.0-34.0); Mean Corpuscular Volume 95.5 fl (81-99); Monocytes # 0.3 10^3/uL (0.2-0.9); Monocytes % 3.6 %; Neutrophils # 7.12 10^3/uL (1.8-7.7); Neutrophils % 78.4 %; Nucleated Red Blood Cells % 0 %; Platelet Count 313 10^3/cmm (130-400); Red Blood Count 2.47 10^6/uL (4.1-5.3); Red Cell Distribution Width 15.1 % (12.1-15.1); White Blood Count 9.1 10^3/uL (4.0-10.0)
== END 2022-03-15 10:24 | disposition home or self-care (01) ==
PROVIDERS: PCP Family Medicine; Visit Provider Nurse Practitioner Family
DX: D64.9 Anemia, unspecified (principal)
CPT/HCPCS: 85025

== ENCOUNTER → 2022-03-16 07:10 | Day surgery (SDC) | payer MEDICARE, OTHER, SELFPAY ==
[2022-03-16 08:02] VITALS: BP 92/49; PULSE 69; RESP 18; TEMP 36.3; O2SAT 98
--- NOTE | 2022-03-16 09:17 | SUR.OPER ---
Pt to GI lab for blood transfusion. Hg noted at 8.4. Blood transfusion not indicated. Pt to return to [facility].
[2022-03-16 09:20] LABS: Hematocrit 26.3 % (37.0-47.0); Hemoglobin 8.4 g/dL (11.5-15.3)
== END ==
PROVIDERS: PCP Family Medicine; Visit Provider Nurse Practitioner Family
DX: D64.9 Anemia, unspecified (principal)
CPT/HCPCS: 36415; 85014; 85018; 86850; 86900; 86920

== ENCOUNTER 2022-03-28 08:44 | Outpatient (CLI) | payer MEDICARE, OTHER, SELFPAY ==
[2022-03-28 10:42] LABS: Basophils # 0.1 10^3/uL (0.0-0.1); Basophils % 1.1 %; Eosinophils # 0.2 10^3/uL (0.0-0.8); Hematocrit 28.8 % (37.0-47.0); Hemoglobin 8.3 g/dL (11.5-15.3); Lymphocytes # 2.3 10^3/uL (0.8-4.8); Lymphocytes % 29.3 %; Mean Corpuscular HGB Conc 28.8 g/dL (30.0-36.0); Mean Corpuscular Hemoglobin 27.2 pg (28.0-34.0); Mean Corpuscular Volume 94.4 fl (81-99); Mean Platelet Volume 9.8 fL (7.4-10.4); Monocytes # 0.5 10^3/uL (0.2-0.9); Monocytes % 6.8 %; Neutrophils # 4.79 10^3/uL (1.8-7.7); Neutrophils % 60.4 %; Nucleated Red Blood Cells % 0 %; Platelet Count 362 10^3/cmm (130-400); Red Blood Count 3.05 10^6/uL (4.1-5.3); Red Cell Distribution Width 15.5 % (12.1-15.1); White Blood Count 7.9 10^3/uL (4.0-10.0)
== END 2022-03-28 08:45 | disposition home or self-care (01) ==
LOC: LAB 08:47
PROVIDERS: PCP Family Medicine; Visit Provider Nurse Practitioner Family
DX: D64.9 Anemia, unspecified (principal)
CPT/HCPCS: 85025